=== PATIENT | male | born 1950 | race Caucasian/White ===

== ENCOUNTER 2024-04-02 10:34 | Outpatient (AMB) | payer MEDICARE, SELFPAY ==
--- NOTE | 2024-04-02 10:37 | A.OFFVIS_ITS ---
Vital Signs 04/02/24 10:49 Height 5 ft 11 in Weight 238 lb 8.642 oz BMI 33.3 BP 134/80 Blood Pressure Location Lt brachial Position Sitting Respiration 18 Pulse 53 Pulse Source Pulse Oximeter Pulse Oximetry (%) 98 Oxygen Delivery Method Room Air Intake Visit Reasons: RA/lm Intake Note: Patients present for RA. Needs prescription for Enbrel. Allergies meperidine [From Demerol] Adverse Reaction (Unknown, Verified 03/18/24 13:10) Hypertension, Seizure, Low Heart Rate Medication List - Last Reconciled 04/02/24 by Yan Branch MD etanercept (Enbrel) 50 mg subcut QWEEK ezetimibe 10 mg PO DAILY hydrochlorothiazide 25 mg PO DAILY lisinopril 40 mg PO DAILY HPI Comments Details: This is a 74-year-old male with seronegative RA who presents as a new patient. Patient was diagnosed with PMR some time 1006 and shortly after it was really able to seronegative RA. He was on prednisone for some time. He also stated that he was on methotrexate for some time and it was ineffective. He was switched to Enbrel in 2007 and it has been quite effective. He has remained on Enbrel regularly this 2007. Patient was getting Enbrel through [employer]. There was an issue with his insurance from 09/06/2023 to 01/06/2024 that time he could not get the Enbrel but he had Enbrel from previous prescriptions and he was using it every other week and he felt much more stiffness and pain. He is now on Enbrel regularly weekly. Today he feels quite well overall. Only intermittent joint pain and stiffness. He would take naproxen about once a week as needed for joint pain or stiffness. He is unaware of any family history of an autoimmune rheumatic disease. Denies any recent infections. [facility] Medical History Obesity ASIYA (obstructive sleep apnea) Hypertension GERD (gastroesophageal reflux disease) Surgical History Hx of nasal septoplasty Hx of adenoidectomy Hx of tonsillectomy History of carpal tunnel surgery Family History Father Heart failure Mother Alzheimer dementia Social History Household Members: Spouse Housing: House Alcohol intake: current Patient Tobacco Use Status: Former Tobacco user Review of Systems Eyes Reports blurry vision Musc Reports arthralgias, Reports joint swelling and Reports stiffness Neuro Reports memory loss Psych Reports anxiety, Reports depression and Reports memory loss Physical Exam Vital Signs: Last Vital Signs Pulse 53 04/02/24 10:49 Resp 18 04/02/24 10:49 BP 134/80 04/02/24 10:49 Pulse Ox 98 04/02/24 10:49 Oxygen Delivery Method Room Air 04/02/24 10:49 BMI result Body Mass Index 33.3 Const General: cooperative, healthy appearing and comfortable Nutritional Appearance: obese Orientation/consciousness: patient oriented x3 Limitations: no limitations HEENT Head: Yes normocephalic and Yes atraumatic Resp Effort & Inspection: normal respiratory effort and able to speak in complete sentences Auscultation: clear to auscultation bilaterally Cardio Rate: regular rate Rhythm: regular rhythm Skin General skin exam: no rashes or lesions noted Neuro General: patient oriented x3 Extrem Other: Osteoarthritic changes of both hands with no active synovitis Normal nailfold capillaroscopy Normal range of motion of hands, wrists, elbows and shoulders without pain Negative straight leg raise test bilaterally No knee pain with full flexion-extension No ankle swelling or tenderness bilaterally Assessment & Plan Assessment & Plan (1) Seronegative rheumatoid arthritis: Comment: dx 2007 MTX ineffective Enbrel 2007 effective Code(s): M06.00 - Rheumatoid arthritis without rheumatoid factor, unspecified site Category: Medical Plan: This is a 74-year-old male with seronegative RA who presents as a new patient for me. Patient used to follow-up with Dr. Daigle for years followed by Dr. Mallory. He has been quite stable on Enbrel 50 mg weekly for many years without side effects. On exam patient is doing quite well with no active synovitis. Will check labs. Continue with Enbrel 50 mg weekly. Patient states that he is up to renew his [employer] safety net application in August. Follow-up in 5 months. Paperwork to be completed at that time Plan I spent 46 minutes reviewing patient's chart, evaluating patient, ordering diagnostic workup, counseling patient and documenting in the chart Orders: Orders Comprehensive Met. Panel Today M06.00 - Rheumatoid arthritis without rheumatoid factor, unspecified site, M13.80 - Other specified arthritis, unspecified site C Reactive Protein Today M06.00 - Rheumatoid arthritis without rheumatoid factor, unspecified site, M13.80 - Other specified arthritis, unspecified site Hepatitis A,B,C Profile Today Z11.59 - Encounter for screening for other viral diseases Immunofixation Pnl, Serum Today M06.00 - Rheumatoid arthritis without rheumatoid factor, unspecified site, M13.80 - Other specified arthritis, unspecified site Protein Electrophoresis, Serum Today M06.00 - Rheumatoid arthritis without rheumatoid factor, unspecified site, M13.80 - Other specified arthritis, unspecified site Complete Blood Count Auto Diff Today M06.00 - Rheumatoid arthritis without rheumatoid factor, unspecified site, M13.80 - Other specified arthritis, unspecified site Erythrocyte Sedimentation Rate Today M06.00 - Rheumatoid arthritis without rheumatoid factor, unspecified site, M13.80 - Other specified arthritis, unspecified site T Spot TB Today Z11.7 - Encounter for testing for latent tuberculosis infection Coding Level of Care Code New Pt Level 4 (26947) Diagnoses Seronegative rheumatoid arthritis M06.00
[2024-04-02 10:49] VITALS: BP 134/80; PULSE 53; RESP 18; O2SAT 98; BMI 33.3
== END 2024-04-02 11:15 | disposition home or self-care (01) ==
PROVIDERS: PCP Nurse Practitioner Family; Visit Provider Student in an Organized Health Care Education/Training Program
DX: M06.00 Rheumatoid arthritis without rheumatoid factor, unspecified site (principal)
CPT/HCPCS: 99204

== ENCOUNTER 2024-04-02 10:34 | Outpatient (REF) | payer MEDICARE, SELFPAY ==
[2024-04-02 11:52] LABS: MANUAL DIFF FLAG NO
[2024-04-02 12:25] LABS: Basophils Absolute Auto 0.1 X10*3/uL (0.0-0.2); Eosinophils Absolute Auto 0.1 X10*3/uL (0.0-0.4); Eosinophils Percent Auto 2.3 % (0-4); Hematocrit 39.5 % (42.0-52.0); Hemoglobin 13.6 g/dl (14.0-18.0); Imm Gran Abs Auto 0.03 X10*3/uL (0.00-0.03); Imm Gran Pct Auto 0.6 % (0.0-0.4); Lymphocytes Absolute Auto 1.2 X10*3/uL (1.2-4.9); Lymphocytes Percent Auto 24.3 % (20-40); Mean Corpuscular HGB Conc 34.4 g/dl (31.0-36.0); Mean Corpuscular Hemoglobin 30.2 pg (27.0-33.0); Mean Corpuscular Volume 87.6 fL (80.0-98.0); Mean Platelet Volume 11.3 fL (9.4-12.4); Monocytes Absolute Auto 0.5 X10*3/uL (0.1-1.2); Monocytes Percent Auto 10.9 % (2-11); Neutrophils Percent Auto 60.9 % (45-73); Platelet Count 180 X10*3/uL (160-400); Red Blood Count 4.51 X10*6/uL (4.60-5.80); Red Cell Distribution Width 12.6 % (11.0-16.0); White Blood Count 4.9 X10*3/uL (4.8-10.8)
[2024-04-02 12:54] LABS: Alanine Aminotransferase 14 U/L (0-40); Albumin Level 4.2 g/dL (3.5-5.0); Alkaline Phosphatase 63 U/L (39-117); Anion Gap 12 (12-20); Aspartate Amino Transferase 22 U/L (5-37); Bilirubin Total 0.6 mg/dL (0.0-1.0); Blood Urea Nitrogen 22 mg/dL (9-16); C Reactive Protein < 0.04 mg/dL (< or = 0.50); Calcium 9.2 mg/dL (8.4-10.2); Carbon Dioxide 25 mmol/L (22-29); Chloride 106 mmol/L (96-108); Estimated Glomerular Filt Rate 55; Glucose Random 93 mg/dL (60-115); Potassium 3.8 mmol/L (3.3-5.1); Sodium 139 mmol/L (135-145); Total Protein 7.1 g/dL (6.5-8.0)
[2024-04-02 13:12] LABS: Erythrocyte Sedimentation Rate 7 MM/HR (0-15)
[2024-04-03 04:06] LABS: HBS Num1 0.26 mIU/mL (0-7.99); HBsAGNum1 0.37 S/CO (0.00-0.99); Hepatitis A Antibody IgM 0.15 Index (0-0.79); Hepatitis B Core Antibody Nonreactive (Nonreactive); Hepatitis B Surface Antigen Negative (Negative); ~HepC Num1 0.33 S/CO (0.00-0.79); ~Hepatitis A Antibody IgM Nonreactive (Nonreactive); ~Hepatitis B Surface Antibody NONREACTIVE (Nonreactive); ~Hepatitis C Antibody Nonreactive (Nonreactive)
[2024-04-04 21:43] LABS: TS Negative Control Passed; TS Panel A 0; TS Panel B 0; TS Positive Control Passed; TSpotTB Negative (Negative)
[2024-04-08 22:28] LABS: PES - Abn Protein Band 1 0.2 g/dL (NONE DETECTED); Prot Elec - Albumin 4.3 g/dL (3.8-4.8); Prot Elec - Alpha1 0.2 g/dL (0.2-0.3); Prot Elec - Alpha2 0.7 g/dL (0.5-0.9); Prot Elec - Beta 1 0.5 g/dL (0.4-0.6); Prot Elec - Beta 2 0.3 g/dL (0.2-0.5); Prot Elec - Gamma 1.1 g/dL (0.8-1.7)
[2024-04-09 14:43] LABS: IgA 164 mg/dL (70-320); IgG 1010 mg/dL (600-1540); IgM 404 mg/dL (50-300)
== END 2024-04-02 10:35 | disposition home or self-care (01) ==
LOC: HO.LAB 10:34
PROVIDERS: PCP Nurse Practitioner Family; Visit Provider Student in an Organized Health Care Education/Training Program
DX: M06.00 Rheumatoid arthritis without rheumatoid factor, unspecified site (principal); M13.80 Other specified arthritis, unspecified site; Z11.7 Encounter for testing for latent tuberculosis infection; Z11.59 Encounter for screening for other viral diseases; Z72.89 Other problems related to lifestyle; Z79.899 Other long term (current) drug therapy
CPT/HCPCS: 36415; 80053; 82784; 84165; 85025; 85652; 86140; 86334; 86481; 86704; 86706; 86709; 86803; 87340; 99202

== ENCOUNTER 2024-09-04 09:02 | Outpatient (AMB) | payer MEDICARE, SELFPAY ==
--- NOTE | 2024-09-04 09:26 | A.OFFVIS_ITS ---
Vital Signs 09/04/24 09:32 Height 5 ft 11 in Weight 243 lb 9.773 oz BMI 34.0 BP 120/80 Blood Pressure Location Rt brachial Position Sitting Respiration 18 Pulse 51 Pulse Source Pulse Oximeter Pulse Oximetry (%) 97 Oxygen Delivery Method Room Air Intake Visit Reasons: RA Intake Note: Patient presents for RA. Allergies meperidine [From Demerol] Adverse Reaction (Unknown, Verified 09/04/24 09:29) Hypertension, Seizure, Low Heart Rate Medication List - Last Reconciled 09/04/24 by Yan Branch MD etanercept (Enbrel) 50 mg subcut QWEEK ezetimibe 10 mg PO DAILY hydrochlorothiazide 25 mg PO DAILY lisinopril 40 mg PO DAILY HPI Comments Details: 74-year-old male with seronegative RA returns for follow-up. He remains on Enbrel. He tried to space out his Enbrel to 1 injection every 2 weeks so it would last longer. Immediately he felt worsening pain and stiffness of his ankles and shoulders. He went back to doing the injection every week. He was on the [employer]. He states that currently he will not qualify as they changed the threshold for low-income. He feels well otherwise Initial history: This is a 74-year-old male with seronegative RA who presents as a new patient. Patient was diagnosed with PMR some time 1006 and shortly after it was really able to seronegative RA. He was on prednisone for some time. He also stated that he was on methotrexate for some time and it was ineffective. He was switched to Enbrel in 2007 and it has been quite effective. He has remained on Enbrel regularly this 2007. Patient was getting Enbrel through [employer]. There was an issue with his insurance from 09/06/2023 to 01/06/2024 that time he could not get the Enbrel but he had Enbrel from previous prescriptions and he was using it every other week and he felt much more stiffness and pain. He is now on Enbrel regularly weekly. Today he feels quite well overall. Only intermittent joint pain and stiffness. He would take naproxen about once a week as needed for joint pain or stiffness. He is unaware of any family history of an autoimmune rheumatic disease. Denies any recent infections. [facility] Medical History Obesity ASIYA (obstructive sleep apnea) Hypertension GERD (gastroesophageal reflux disease) Surgical History Hx of nasal septoplasty Hx of adenoidectomy Hx of tonsillectomy History of carpal tunnel surgery Family History Father Heart failure Mother Alzheimer dementia Social History Household Members: Spouse Housing: House Alcohol intake: current Patient Tobacco Use Status: Former Tobacco user Review of Systems [facility] Reports arthralgias and Denies joint swelling Physical Exam Vital Signs: Last Vital Signs Pulse 51 09/04/24 09:32 Resp 18 09/04/24 09:32 BP 120/80 09/04/24 09:32 Pulse Ox 97 09/04/24 09:32 Oxygen Delivery Method Room Air 09/04/24 09:32 BMI result Body Mass Index 34.0 Const General: cooperative, healthy appearing and comfortable Nutritional Appearance: obese Orientation/consciousness: patient oriented x3 Limitations: no limitations HEENT Head: Yes normocephalic and Yes atraumatic Resp Effort & Inspection: normal respiratory effort and able to speak in complete sentences Cardio Rate: regular rate Rhythm: regular rhythm Skin General skin exam: no rashes or lesions noted Neuro General: patient oriented x3 Extrem Other: Osteoarthritic changes of both hands with no active synovitis Normal nailfold capillaroscopy Normal range of motion of hands, wrists, elbows and shoulders without pain Negative straight leg raise test bilaterally No knee pain with full flexion-extension No ankle swelling or tenderness bilaterally Assessment & Plan Assessment & Plan (1) Seronegative rheumatoid arthritis: Comment: dx 2007 MTX ineffective Enbrel 2007 effective Code(s): M06.00 - Rheumatoid arthritis without rheumatoid factor, unspecified site Category: Medical Plan: This is a 74-year-old male with seronegative RA who for follow-up. He has been on Enbrel regularly for since 2007. He was on the [employer] safety [employer]. Currently the threshold for household income has change and now he does not qualify. Since Enbrel has worked quite well for him for many years I think it would be a good idea to stay on a TNF inhibitor. Such as Enbrel or its bio similars or Humira or its bio similars. We will contact patient's insurance company and work on authorized doing a TNF inhibitor for him Labs before next visit in 3 months (2) MGUS (monoclonal gammopathy of unknown significance): Code(s): D47.2 - Monoclonal gammopathy Category: Medical Plan: Referred to heme/Onc (3) High risk medication use: Code(s): Z79.899 - Other rn long term care (current) drug therapy Category: Medical Plan: Side effects of Enbrel were discussed with the patient in detail including increased risk of infection, demyelinating disease, reactivation of latent TB, possible increased risk of solid and skin tumors. Patient fully aware. Advised patient to seek medical care [facility] if patient has an infection and advised patient to stop the medication until the infection is resolved. Plan I spent 26 minutes reviewing patient's chart, evaluating patient, ordering diagnostic workup, counseling patient and documenting in the chart Orders: Orders Comprehensive Met. Panel 3 Months M06.00 - Rheumatoid arthritis without rheumatoid factor, unspecified site C Reactive Protein 3 Months M06.00 - Rheumatoid arthritis without rheumatoid factor, unspecified site Complete Blood Count Auto Diff 3 Months M06.00 - Rheumatoid arthritis without rheumatoid factor, unspecified site Erythrocyte Sedimentation Rate 3 Months M06.00 - Rheumatoid arthritis without rheumatoid factor, unspecified site Referrals Hematology & Oncology Referral D47.2 - Monoclonal gammopathy Coding Level of Care Code Est Pt Level 4 (85445) Diagnoses Seronegative rheumatoid arthritis M06.00 MGUS (monoclonal gammopathy of unknown significance) D47.2 High risk medication use Z79.899
[2024-09-04 09:32] VITALS: BP 120/80; PULSE 51; RESP 18; O2SAT 97; BMI 34.0
== END 2024-09-04 10:08 | disposition home or self-care (01) ==
PROVIDERS: PCP Nurse Practitioner Family; Visit Provider Student in an Organized Health Care Education/Training Program
DX: M06.00 Rheumatoid arthritis without rheumatoid factor, unspecified site (principal); D47.2 Monoclonal gammopathy; Z79.899 Other long term (current) drug therapy
CPT/HCPCS: 99214

== ENCOUNTER → 2024-09-04 09:02 | Outpatient (BNVA) | payer MEDICARE, SELFPAY | PROVIDERS: PCP Nurse Practitioner Family; Visit Provider Student in an Organized Health Care Education/Training Program | DX: M06.00 Rheumatoid arthritis without rheumatoid factor, unspecified site (principal); D47.2 Monoclonal gammopathy; Z79.899 Other long term (current) drug therapy | CPT/HCPCS: 99212 ==

== ENCOUNTER 2024-12-18 11:05 | Outpatient (AMB) | payer MEDICARE, SELFPAY ==
--- NOTE | 2024-12-18 11:06 | A.OFFVIS_ITS ---
Vital Signs 12/18/24 11:18 Height 5 ft 11 in Weight 244 lb 4.355 oz BMI 34.1 BP 142/74 H Blood Pressure Location Lt brachial Position Sitting Pulse 59 Pulse Source Pulse Oximeter Pulse Oximetry (%) 96 Oxygen Delivery Method Room Air Intake Visit Reasons: RA Intake Note: Patient presents today for. Allergies meperidine [From Demerol] Adverse Reaction (Unknown, Verified 12/18/24 11:17) Hypertension, Seizure, Low Heart Rate Medication List - Last Reconciled 12/18/24 by Ingrid Lomax MD ezetimibe 10 mg PO DAILY golimumab (Simponi) 100 mg subcut Q4W hydrochlorothiazide 25 mg PO DAILY lisinopril 40 mg PO DAILY HPI Comments Details: Patient is a 74-year-old male with hypertension, hyperlipidemia, MGUS and seronegative rheumatoid arthritis here today for follow up Interval History: Patient last seen 09/04/[address] Branch. At that time he was following up for his seronegative rheumatoid arthritis. He was on Enbrel however did not meet the [employer] income requirements and so he was trying to space out his Enbrel injections to every 2 weeks so that they would last longer however this was associated worsening pain and stiffness. Because he no longer qualified for the [employer] his medication was changed to Humira. Unfortunately the Humira was not covered by insurance and so he was changed to Simponi Aria infusions of which she has received 2 doses so far. Patient reports he is overall stable on the Simponi Aria infusions with no return of his joint pain Rheumatologic History: Initial history: This is a 74-year-old male with seronegative RA who presents as a new patient. Patient was diagnosed with PMR some time 1006 and shortly after it was really able to seronegative RA. He was on prednisone for some time. He also stated that he was on methotrexate for some time and it was ineffective. He was switched to Enbrel in 2007 and it has been quite effective. He has remained on Enbrel regularly this 2007. Patient was getting Enbrel through [facility] [facility]. There was an issue with his insurance from 09/06/2023 to 01/06/2024 that time he could not get the Enbrel but he had Enbrel from previous prescriptions and he was using it every other week and he felt much more stiffness and pain. He is now on Enbrel regularly weekly. Today he feels quite well overall. Only intermittent joint pain and stiffness. He would take naproxen about once a week as needed for joint pain or stiffness. He is unaware of any family history of an autoimmune rheumatic disease. Denies any recent infections. Current Rheumatology Medication(s): Simponi Aria infusions 2mg/kg IV every 8 weeks [facility] Medical History Obesity ASIYA (obstructive sleep apnea) Hypertension GERD (gastroesophageal reflux disease) Surgical History Hx of nasal septoplasty Hx of adenoidectomy Hx of tonsillectomy History of carpal tunnel surgery Family History Father Heart failure Mother Alzheimer dementia Social History Household Members: Spouse Housing: House Alcohol intake: current Patient Tobacco Use Status: Former Tobacco user Review of Systems Const Details: Review of Systems Constitutional: Denies fever, chills, weight loss ENT: Denies vision changes, eye pain or eye redness, dental caries, dry mouth GI: Denies nausea, vomiting, diarrhea, abdominal pain, change in BM Pulm: Denies SOB, FIGUEROA, hemoptysis, wheezing Cards: Denies chest pain, palpitations Skin: Denies Raynaud's, rash, nail changes, photosensitivity, ROLL CLEANER: Denies headaches, weakness, paresthesias, recurrent falls MSK: as per HPI All other systems reviewed and are unremarkable except noted above Physical Exam Vital Signs: Last Vital Signs Pulse 59 12/18/24 11:18 BP 142/74 H 12/18/24 11:18 Pulse Ox 96 12/18/24 11:18 Oxygen Delivery Method Room Air 12/18/24 11:18 BMI result Body Mass Index 34.1 Vital signs reviewed Physical Examination CONSTITUITIONAL Patient alert and cooperative. Well appearing and in no apparent painful distress HEENT Conjunctiva and sclera clear. ?Pupils equal round and reactive to light. ?No lymphadenopathy. ? CHEST/RESPIRATORY SYSTEM Normal respiratory effort and able to speak in complete sentences. ?Clear to auscultation bilaterally. ?No crackles, rales, rhonchi, wheezes heard. CARDIAC SYSTEM Regular rate and rhythm. ?S1 and S2 heard no murmurs. ?Radial pulses intact bilaterally MSK Hands: ?Good hand gluer and slicer strength bilaterally. No deformities noted. ?No synovitis noted to the MCPs, PIPs or DIPs. ?No tenderness to palpation of these joints. Prominent [place] nodes Wrists: ?Full range of motion at the wrists without pain. ?No tenderness to palpation or synovitis noted to the wrists. Elbows: Full range of motion without pain. No tenderness, weakness, swelling, in creased warmth or erythema. Shoulders: Full range of motion without pain. No tenderness, weakness, swelling, increased warmth or erythema. Positive Montero Zurdo on the left shoulder with prominent musculature from an old injury. Hips: Full range of motion without pain. Hip bursa: No tenderness to palpation Knees: ?Full range of motion. ?No tenderness, swelling, increased warmth or eryt gilberto.?No effusion or crepitations Ankles: Full range of motion. ?No tenderness, swelling, increased warmth or erythema.? Feet: ?Negative squeeze test. ?No tenderness to palpation or swelling of the MTPs. Tender points:?No tenderness to palpation of the bilateral trapezius, supraspinatus, greater trochanters, anterior costochondral junctions, bilateral gluteal areas, bilateral suboccipital muscle insertions SKIN Skin intact without rashes. Results Reviewed Results Reviewed: Laboratory Tests 11/13/24 10:08 WBC 4.5 L RBC 4.38 L Hgb 13.2 L Hct 38.8 L Plt Count 170 ESR 10 Sodium 143 Potassium 3.9 Chloride 108 Carbon Dioxide 25 BUN 33 H Creatinine 1.38 Calcium 9.0 Total Bilirubin 0.4 AST 30 ALT 22 Alkaline Phosphatase 71 C-Reactive Protein < 0.10 Laboratory Tests 04/02/24 11:50 SURESH Interpretation Faint IgG kappa monoclonal band present. Infectious serologies 04/02/24 11:50 Hepatitis A IgM Ab Nonreactive Hep Bs Antigen Negative Hep Bs Antibody NONREACTIVE Hep B Core Total Ab Nonreactive Hepatitis C Ab (EIA) Nonreactive TB Test (T-Spot) Com Negative Assessment & Plan Assessment & Plan (1) Seronegative rheumatoid arthritis: Comment: dx 2007 MTX ineffective Enbrel 2008 effective Code(s): M06.00 - Rheumatoid arthritis without rheumatoid factor, unspecified site Category: Medical Plan: #Seronegative RA Patient is a 74-year-old male with seronegative rheumatoid arthritis here today for follow up. Disease is currently in remission on Simponi Aria infusions. Plan - Continue simponi aria infusions 2mg/kg every 8 weeks - RTC 4 months - Labs before visit: CBC, CMP, ESR, CRP, hepatitis panel, T spot (2) MGUS (monoclonal gammopathy of unknown significance): Code(s): D47.2 - Monoclonal gammopathy Category: Medical Plan: #MGUS Positive SPEP. Referred to Hematology (3) Tendinopathy of left rotator cuff: Code(s): M67.912 - Unspecified disorder of synovium and tendon, left shoulder Plan: #Rotator Cuff tendinopathy Patient with rotator cuff tendinopathy worse on the left. Of note has a known injury to the left shoulder. Stretches given in a printout (4) Encounter for monitoring golimumab therapy: Code(s): Z51.81 - Encounter for therapeutic drug level monitoring; Z79.620 - intermission coordinator (current) use of immunosuppressive biologic Plan: #Long-term Use of TNF Inhibitors: Golimumab Discussed with the patient the benefits and risks of TNF inhibitors for the management of the rheumatic condition Benefits include reduce pain, maintenance of remission and reduction of flares as well as ?progression of the disease Risks include injection sites/infusion reactions, serious infections (such as bacterial infections, opportunistic infections), malignancy, delaminating syndromes, autoimmune phenomena, CHF exacerbations, palmar plantar psoriasis and cytopenias Recommended rotating injection sites, and holding medication during and for up to 1 week after resolution of a febrile illness or open skin wound Plan I spent 30 minutes reviewing the record and labs, taking a history, examining the patient, discussing the treatment plan, ordering diagnostic work up and documenting in the medical record Orders: Orders Complete Blood Count Auto Diff 4 Months M06.00 - Rheumatoid arthritis without rheumatoid factor, unspecified site Comprehensive Met. Panel 4 Months M06.00 - Rheumatoid arthritis without rheumatoid factor, unspecified site C Reactive Protein 4 Months M06.00 - Rheumatoid arthritis without rheumatoid factor, unspecified site Erythrocyte Sedimentation Rate 4 Months M06.00 - Rheumatoid arthritis without rheumatoid factor, unspecified site Hepatitis A,B,C Profile 4 Months M06.00 - Rheumatoid arthritis without rheumatoid factor, unspecified site T Spot TB 4 Months M06.00 - Rheumatoid arthritis without rheumatoid factor, unspecified site Referrals Hematology & Oncology Referral D47.2 - Monoclonal gammopathy Infusion Center Notification M06.00 - Rheumatoid arthritis without rheumatoid factor, unspecified site Medications: Discontinued adalimumab (Humira(CF) Pen) Discontinued Reason: Doctor's Order inject one - 40 mg/0.4 mL pen every 2 weeks subcut 2 ea 2RF Coding Level of Care Code Est Pt Level 4 (01417) Complex EM visit Add On G2211 Diagnoses Seronegative rheumatoid arthritis M06.00 MGUS (monoclonal gammopathy of unknown significance) D47.2 Tendinopathy of left rotator cuff M67.912 Encounter for monitoring golimumab therapy Z51.81; Z79.620
[2024-12-18 11:18] VITALS: BP 142/74; PULSE 59; O2SAT 96; BMI 34.1
--- OUTSIDE RECORDS SUMMARY | 2024-12-18 13:27 | XMS_ITS | Clinical Summary ---
Author Organization [facility] Address [facility] [place] [address] Care Team Providers Care Front End Software Engineer Name Role Phone Christy Arthur MD Primary Care Provider [phone] Allergies Active Allergy Reactions Criticality Noted Date Comments Meperidine 08/12/2019 Medications Medication Sig Dispensed Refills Start Date End Date Status amLODIPine (Norvasc) 5 mg Tablet TAKE 1 TABLET(5 MG) BY MOUTH DAILY 09/04/2020 Active etanercept (ENBREL) 25 mg (1 mL) Recon Soln Acti ve hydroCHLOROthiazide (Hydrodiuril) 25 mg Tablet Take 25 mg by mouth Daily. Active lisinopriL (Prinivil;Zestril) 40 mg Tablet Take 40 mg by mouth Daily. Active Active Problems Problem Noted Date Diagnosed Date Bradycardia 08/12/2019 Hypertension 08/12/2019 Syncope and collapse 08/12/2019 Social History Tobacco Use Types Packs/Day Years Used Date Smoking Tobacco: Never Smokeless Tobacco: Never Sex and Gender Information Value Date Recorded Sex Assigned at Not on file Gender Identity Not on file Sexual Orientation Not on file Last Filed Vital Signs Vital Sign Reading Time Taken Comments Blood Pressure 184/81 12/30/2020 7:55 AM EDT Pulse - - Temperature 36.3 ??C (97.3 ??F) 12/30/2020 7:55 AM ED T Respiratory Rate - - Oxygen Saturation - - Inhaled Oxygen Concentration - - Weight - - Height - - Body Mass Index - - Plan of Treatment Health Maintenance Due Date Last Done Comments CT Colonography 1949 Colonoscopy 1949 Colorectal Cancer Screening 1949 FIT DNA 1949 FIT 1949 Sigmoidoscopy (10 year) with FIT yearly 1949 Sigmoidoscopy 1949 Hepatitis C Screening 1967 Lipid Screening 1967 Tetanus/Diphtheria/Pertussis Vaccines (1 - Tdap) 02/01 Pneumoccocal Vaccine: 50+ (1 of 1 - PCV) 1999 Zoster vaccine (1 of 2) 1999 Advance Directive 02/02/2004 RSV Vaccine (1 - 1-dose 75+ series) 02/02/2024 Covid-19 Vaccine (1 - season) 2024 Influenza (Flu) vaccine (1 o f 1 - Influenza standard series) 05/19/2024 Care Teams Front End Software Engineer Relationship Specialty Start Date End Date Christy Arthur MD PCP - General Internal Medicine 12/17/20
--- OUTSIDE RECORDS SUMMARY | 2024-12-18 13:27 | XMS_ITS | Clinical Summary ---
Author Organization [facility], Address [address] [place] [address] Phone Care Team Providers Care Scale Manager Name Role Phone Edward Rucker Primary Care Provider [phone] Social History Tobacco Use Types Packs/Day Years Used Date Smoking Tobacco: Never Assessed Sex and Gender Information Value Date Recorded Sex Assigned at Not on file Legal Sex Male 4:02 PM EST Gender Identity Not on file Sexual Orientation Not on file Plan of Treatment Health Maintenance Due Date Last Done Comments Colorectal Cancer Screening: Annual FOBT 1998 Colorectal Cancer Screening: Colonoscopy 1998 Colorectal Cancer Screening: Sigmoidoscopy 1998 Pneumococcal Vaccine: 65+ Ye ars (1 of - PCV) 2014 Influenza Vaccine (Season Ended) 2025 Hepatitis B Vaccine Aged Out No longe r eligible based on patient's age to complete this topic Insurance MEDICARE [facility] Care Teams Scale Manager Relationship Specialty Start Date End Date Edward Rucker PA [address] [place] [id number] PCP - General Physician Machine I Trimmer 08/18/21
--- OUTSIDE RECORDS SUMMARY | 2024-12-18 13:27 | XMS_ITS | Data Portability ---
Author Organization [facility], [facility] Address [address] [place] [address] Care Team Providers Care Cashier General Name Role Phone ZACH DAIGLE [address] Repairer SHERRIE SÁNCHEZ Primary Care Provider Assessment No assessment recorded. Plan of Treatment Reminders Order Date Submit Date Provider Last Modified By Organization Details Last Modified Time Details Appointments None recorded. Lab CBC 2021 [facility], [address] [place] [address], [id number], 10:35:19 C-reactive protein, quantitativ e, serum or plasma 2021 [facility], [address] [place] [address], 43568, 14:52:25 erythrocyte sedimentati on rate by westergren method 2021 [facility], [address] [place] [address], 21573, 12:03:33 CMP, serum or plasma 2021 [facility], [address] [place] [address], 11162, 14:36:10 CBC 2021 [facility], [address] [place] [address], 74521, 07/06/202 2 11:01:45 C-reactive protein, quantitativ e, serum or plasma 2021 022 [facility], [address] [place] [address], 42061, 16:05:09 erythrocyte sedimentati on rate by westergren method 2021 022 [facility], [address] [place] [address], 36055, 12:14:22 CMP, serum or plasma 2021 022 [facility], [address] [place] [address], 86893, 15:39:16 tb (M tuberculosi s), ifn-gamma elver, blood 2021 022 [facility], [address] [place] [address], 33197, 15:49:29 CBC 2021 022 [facility], [address] [place] [address], 17798, 10:40:38 C-reactive protein, quantitativ e, serum or plasma 2021 022 [facility], [address] [place] [address], 86449, 2 16:35:20 erythrocyte sedimentati on rate by westergren method 2021 022 [facility], [address] [place] [address], 22400, 16:11:00 CMP, serum or plasma 2021 022 [facility], [address] [place] [address], 68693, 14:30:58 CBC [address] [facility], [address] [place] [address], 76489, 12:07:36 C-reactive protein, quantitativ e, serum or plasma [address] [facility], [address] [place] [address], 18250, 12:07:36 erythrocyte sedimentati on rate by westergren method [address] [facility], [address] [place] [address], 35345, 12:07:36 CMP, serum or plasma [address] [facility], [address] [place] [address], 52274, 12:07:36 Referral None recorded. Procedures None recorded. Surgeries None recorded. Imaging bone density 2021 [facility] ([facility]), [address], [place], [address], 21:26:07 Medication Orders prednisone 5 mg tablet 2021 022 [email or web address] 4 [id number], [address], [place], [id number], 09:35:26 prednisone 10 mg tablet 2021 022 [email or web address] 4 [id number], [address], [place], [id number], 14:38:19 prednisone 10 mg tablet 2021 022 [facility] #[id number], [address], [place], [id number], 11:11:30 Patient TargetsNo targets recorded. Patient InstructionsNo instructions recorded. Reason for Referral None Reported. Results Created Date Observation Date Name Description Value Unit Range Abnormal Flag Note LastModifiedBy Organization Detail LastModifiedTime 10/12/19 22 10/12/2021 CBC WBC 8.73 K/? ? ?L 4.23-9 .07 Not Available [address], 47[address], 10/12/2021 12:10:32 10/12/19 22 10/12/2021 CBC RBC 4.41 M/? ? ?L 4.63-6 .08 low Not Available [address], 03929, 10/12/2021 12:10:32 10/12/19 22 10/12/2021 CBC HGB 12.2 g/dL 13.7-1 7.5 low Not Available [address], 14711, 10/12/2021 12:10:32 10/12/19 22 10/12/2021 CBC HCT 38.6 % 40.1-5 1.0 low Not Available [address], 53872, 10/12/2021 12:10:32 10/12/19 22 10/12/2021 CBC MCV 87.5 fL 79.0-9 2.2 Not Available [address], 45319, 10/12/2021 12:10:32 10/12/19 22 10/12/2021 CBC MCH 27.7 pg 25.7-3 2.2 Not Available [address], 33601, 10/12/2021 12:10:32 10/12/19 22 10/12/2021 CBC MCHC 31.6 g/dL 32.3-3 6.5 low Not Available [address], 04584, 10/12/2021 12:10:32 10/12/19 22 10/12/2021 CBC plt 249 K/? ? ?L 163-33 7 Not Available [address], 42993, 10/12/2021 12:10:32 10/12/19 22 10/12/2021 CBC MPV 10.9 fL 9.4-12 .4 Not Available [address], 04401, 10/12/2021 12:10:32 10/12/19 22 10/12/2021 CBC neut% 69.7 % 34.0-6 7.9 high Not Available [address], 65725, 10/12/2021 12:10:32 10/12/19 22 10/12/2021 CBC neut# 6.08 1.78-5 .38 high Not Available [address], 13598, 10/12/2021 12:10:32 10/12/19 22 10/12/2021 CBC lymph % 13.1 % 21.8-5 3.1 low Not Available [address], 04781, 10/12/2021 12:10:32 10/12/19 22 10/12/2021 CBC lymph # 1.14 K/? ? ?L 1.32-3 .57 low Not Available [address], 58093, 10/12/2021 12:10:32 10/12/19 22 10/12/2021 CBC mono% 14.4 % 5.3-12 .2 high Not Available [address], 16619, 10/12/2021 12:10:32 10/12/19 22 10/12/2021 CBC mono# 1.26 0.30-0 .82 high Not Available [address], 46291, 10/12/2021 12:10:32 10/12/19 22 10/12/2021 CBC eo% 1.8 % 0.8-7. 0 Not Available [address], 60605, 10/12/2021 12:10:32 10/12/19 22 10/12/2021 CBC eo# 0.16 0.04-0 .54 Not Available [address], 22440, 10/12/2021 12:10:32 10/12/19 22 10/12/2021 CBC baso% 0.7 % 0.2-1. 2 Not Available [address], 68475, 10/12/2021 12:10:32 10/12/19 22 10/12/2021 CBC baso# 0.06 0.00-0 .08 Not Available [address], 32090, 10/12/2021 12:10:32 10/12/19 22 10/12/2021 CBC RDW-CV 12.7 % 11.6-1 4.4 Not Available [address], 61884, 10/12/2021 12:10:32 10/12/19 22 10/12/2021 CBC Ig% 0.300 % 0.000- 1.500 Ig % >0.5 Indic ates possi ble Left Shift Not Available [address], 24611, 10/12/2021 12:10:32 10/12/19 22 10/12/2021 CBC Ig# 0.030 0.000- 0.093 Not Available [address], 00231, 10/12/2021 12:10:32 10/12/19 22 10/12/2021 CBC NRBC% 0.0 % 0.0-0. 2 Not Available [address], 65415, 10/12/2021 12:10:32 10/12/19 22 10/12/2021 CBC NRBC# 0.000 0.000- 0.012 Not Available [address], 69251, 10/12/2021 12:10:32 10/12/19 22 10/12/2021 ESR sed rate 29.0 0.0-20 .0 high Not Available [address], 27146, 10/12/2021 15:00:17 10/12/19 22 10/12/2021 COMP. METAB OLIC PANEL glucose 115 mg/dL 70-100 high Not Available [address], 21032, 10/12/2021 15:46:40 10/12/19 22 10/12/2021 COMP. METAB OLIC PANEL BUN 33 mg/dL 7-18 high Not Available [address], 69435, 10/12/2021 15:46:40 10/12/19 22 10/12/2021 COMP. METAB OLIC PANEL creatinine 1.4 mg/dL 0.8-1. 3 high Not Available [address], 56737, 10/12/2021 15:46:40 10/12/19 22 10/12/2021 COMP. METAB OLIC PANEL B/C 23.6 ratio Not Available [address], 82542, 10/12/2021 15:46:40 10/12/19 22 10/12/2021 COMP. METAB OLIC PANEL GFR 53.4 mL/mi n abnormal >=60m L/min - Yelena l or midly reduc ed <60mL /min- Decre ased kidne y funct ion <15mL /min - Kidne y failu re [facility] calcu lates estim ated Glome rular Filtr ation Rate (eGFR ) using the Chron ic Kidne y Disea se Epide miolo gy Colla borat ion (CKD- EPI) Equat ion (Steven barba et. al 2020) as recom jduy d by the Natio nal Kidne y Found ation . eGFR is based on age, serum creat inine , and sex. CKD-E PI does not calcu late eGFR by race, does not apply to child aye (age <18 years ), and shoul d not be used in pregn chayito. Not Available [address], 69360, 10/12/2021 15:46:40 10/12/19 22 10/12/2021 COMP. METAB OLIC PANEL sodium 141 mmol/ L 136-14 5 Not Available [address], 85937, 10/12/2021 15:46:40 10/12/19 22 10/12/2021 COMP. METAB OLIC PANEL potassium 4.5 mmol/ L 3.5-5. 1 Not Available [address], 60921, 10/12/2021 15:46:40 10/12/19 22 10/12/2021 COMP. METAB OLIC PANEL chloride 102 mmol/ L 96-107 Not Available [address], 70418, 10/12/2021 15:46:40 10/12/19 22 10/12/2021 COMP. METAB OLIC PANEL anion gap 9.1 5.0-15 .0 Not Available [address], 64784, 10/12/2021 15:46:40 10/12/19 22 10/12/2021 COMP. METAB OLIC PANEL CO2 30 mmol/ L 21-32 Not Available [address], 23794, 10/12/2021 15:46:40 10/12/19 22 10/12/2021 COMP. METAB OLIC PANEL calcium 9.2 mg/dL 8.5-10 .3 Not Available [address], 06560, 10/12/2021 15:46:40 10/12/19 22 10/12/2021 COMP. METAB OLIC PANEL total protein 7.4 g/dL 6.4-8. 2 Not Available [address], 78050, 10/12/2021 15:46:40 10/12/19 22 10/12/2021 COMP. METAB OLIC PANEL albumin 3.9 g/dL 3.4-5. 0 Not Available [address], 91776, 10/12/2021 15:46:40 10/12/19 22 10/12/2021 COMP. METAB OLIC PANEL globulin 3.5 g/dL Not Available [address], 52991, 10/12/2021 15:46:40 10/12/19 22 10/12/2021 COMP. METAB OLIC PANEL A/G 1.1 ratio 0.8-2. 0 Not Available [address], 81352, 10/12/2021 15:46:40 10/12/19 22 10/12/2021 COMP. METAB OLIC PANEL total bilirubin 0.50 mg/dL 0.00-1 .00 Not Available [address], 58964, 10/12/2021 15:46:40 10/12/19 22 10/12/2021 COMP. METAB OLIC PANEL AST 20 U/L 0-37 Not Available [address], 06196, 10/12/2021 15:46:40 10/12/19 22 10/12/2021 COMP. METAB OLIC PANEL ALT 23 U/L 6-63 Not Available [address], 47235, 10/12/2021 15:46:40 10/12/19 22 10/12/2021 COMP. METAB OLIC PANEL alk. phos. 89 U/L 50-136 Not Available [address], 92503, 10/12/2021 15:46:40 10/12/19 22 10/12/2021 C-MALIK CTIVE PROTE IN-QU ANTIT ATIVE C-reactive protein -quant 20.5 mg/L 0.0-9. 0 high Not Available [address], 51035, 10/12/2021 15:46:41 12/07/19 22 12/06/2021 CBC WBC 7.11 K/? ? ?L 4.23-9 .07 Not Available [address], 34640, 12/06/2021 10:40:38 12/07/19 22 12/06/2021 CBC RBC 4.40 M/? ? ?L 4.63-6 .08 low Not Available [address], 85249, 12/06/2021 10:40:38 12/07/19 22 12/06/2021 CBC HGB 12.4 g/dL 13.7-1 7.5 low Not Available [address], 58310, 12/06/2021 10:40:38 12/07/19 22 12/06/2021 CBC HCT 39.0 % 40.1-5 1.0 low Not Available [address], 55517, 12/06/2021 10:40:38 12/07/19 22 12/06/2021 CBC MCV 88.6 fL 79.0-9 2.2 Not Available [address], 94881, 12/06/2021 10:40:38 12/07/19 22 12/06/2021 CBC MCH 28.2 pg 25.7-3 2.2 Not Available [address], 82001, 12/06/2021 10:40:38 12/07/19 22 12/06/2021 CBC MCHC 31.8 g/dL 32.3-3 6.5 low Not Available [address], 23349, 12/06/2021 10:40:38 12/07/19 22 12/06/2021 CBC plt 217 K/? ? ?L 163-33 7 Not Available [address], 30097, 12/06/2021 10:40:38 12/07/19 22 12/06/2021 CBC MPV 11.0 fL 9.4-12 .4 Not Available [address], 08809, 12/06/2021 10:40:38 12/07/19 22 12/06/2021 CBC neut% 63.1 % 34.0-6 7.9 Not Available [address], 02277, 12/06/2021 10:40:38 12/07/19 22 12/06/2021 CBC neut# 4.48 1.78-5 .38 Not Available [address], 21172, 12/06/2021 10:40:38 12/07/19 22 12/06/2021 CBC lymph % 20.5 % 21.8-5 3.1 low Not Available [address], 97356, 12/06/2021 10:40:38 12/07/19 22 12/06/2021 CBC lymph # 1.46 K/? ? ?L 1.32-3 .57 Not Available [address], 33979, 12/06/2021 10:40:38 12/07/19 22 12/06/2021 CBC mono% 12.8 % 5.3-12 .2 high Not Available [address], 41218, 12/06/2021 10:40:38 12/07/19 22 12/06/2021 CBC mono# 0.91 0.30-0 .82 high Not Available [address], 96152, 12/06/2021 10:40:38 12/07/19 22 12/06/2021 CBC eo% 2.5 % 0.8-7. 0 Not Available [address], 47152, 12/06/2021 10:40:38 12/07/19 22 12/06/2021 CBC eo# 0.18 0.04-0 .54 Not Available [address], 20194, 12/06/2021 10:40:38 12/07/19 22 12/06/2021 CBC baso% 0.7 % 0.2-1. 2 Not Available [address], 09923, 12/06/2021 10:40:38 12/07/19 22 12/06/2021 CBC baso# 0.05 0.00-0 .08 Not Available [address], 97662, 12/06/2021 10:40:38 12/07/19 22 12/06/2021 CBC RDW-CV 13.2 % 11.6-1 4.4 Not Available [address], 01329, 12/06/2021 10:40:38 12/07/19 22 12/06/2021 CBC Ig% 0.400 % 0.000- 1.500 Ig % >0.5 Indic ates possi ble Left Shift Not Available [address], 90572, 12/06/2021 10:40:38 12/07/19 22 12/06/2021 CBC Ig# 0.030 0.000- 0.093 Not Available [address], 95382, 12/06/2021 10:40:38 12/07/19 22 12/06/2021 CBC NRBC% 0.0 % 0.0-0. 2 Not Available [address], 27099, 12/06/2021 10:40:38 12/07/19 22 12/06/2021 CBC NRBC# 0.000 0.000- 0.012 Not Available [address], 29708, 12/06/2021 10:40:38 12/07/19 22 12/06/2021 ESR sed rate 24.0 0.0-20 .0 high Not Available [address], 76419, 12/06/2021 16:11:00 12/07/19 22 12/06/2021 C-MALIK CTIVE PROTE IN-QU ANTIT ATIVE C-reactive protein -quant <2.0 mg/L 0.0-9. 0 < Test resul t verif ied by repea t Not Available [address], 05366, 12/06/2021 16:35:20 12/07/19 22 12/07/2021 COMP. METAB OLIC PANEL glucose 104 mg/dL 70-100 high Not Available [address], 33707, 12/07/2021 14:30:58 12/07/19 22 12/07/2021 COMP. METAB OLIC PANEL BUN 34 mg/dL 7-18 high Not Available [address], 88794, 12/07/2021 14:30:58 12/07/19 22 12/07/2021 COMP. METAB OLIC PANEL creatinine 1.2 mg/dL 0.8-1. 3 Not Available [address], 04377, 12/07/2021 14:30:58 12/07/19 22 12/07/2021 COMP. METAB OLIC PANEL B/C 28.3 ratio Not Available [address], 74294, 12/07/2021 14:30:58 12/07/19 22 12/07/2021 COMP. METAB OLIC PANEL GFR >=60ML /MIN mL/mi n normal >=60m L/min - Yelena l or midly reduc ed <60mL /min- Decre ased kidne y funct ion <15mL /min - Kidne y failu re [facility] calcu lates estim ated Glome rular Filtr ation Rate (eGFR ) using the Chron ic Kidne y Disea se Epide miolo gy Colla borat ion (CKD- EPI) Equat ion (Steven r et. al 2020) as recom judy d by the Natio nal Kidne y Found ation . eGFR is based on age, serum creat inine , and sex. CKD-E PI does not calcu late eGFR by race, does not apply to child aye (age <18 years ), and shoul d not be used in pregn chayito. Not Available [address], 26523, 12/07/2021 14:30:58 12/07/19 22 12/07/2021 COMP. METAB OLIC PANEL sodium 142 mmol/ L 136-14 5 Not Available [address], 92486, 12/07/2021 14:30:58 12/07/19 22 12/07/2021 COMP. METAB OLIC PANEL potassium 4.1 mmol/ L 3.5-5. 1 Not Available [address], 37132, 12/07/2021 14:30:58 12/07/19 22 12/07/2021 COMP. METAB OLIC PANEL chloride 106 mmol/ L 96-107 Not Available [address], 33669, 12/07/2021 14:30:58 12/07/19 22 12/07/2021 COMP. METAB OLIC PANEL anion gap 8.6 5.0-15 .0 Not Available [address], 44004, 12/07/2021 14:30:58 12/07/19 22 12/07/2021 COMP. METAB OLIC PANEL CO2 27 mmol/ L 21-32 Not Available [address], 64591, 12/07/2021 14:30:58 12/07/19 22 12/07/2021 COMP. METAB OLIC PANEL calcium 8.7 mg/dL 8.5-10 .3 Not Available [address], 83591, 12/07/2021 14:30:58 12/07/19 22 12/07/2021 COMP. METAB OLIC PANEL total protein 6.9 g/dL 6.4-8. 2 Not Available [address], 22539, 12/07/2021 14:30:58 12/07/19 22 12/07/2021 COMP. METAB OLIC PANEL albumin 3.6 g/dL 3.4-5. 0 Not Available [address], 93212, 12/07/2021 14:30:58 12/07/19 22 12/07/2021 COMP. METAB OLIC PANEL globulin 3.3 g/dL Not Available [address], 55841, 12/07/2021 14:30:58 12/07/19 22 12/07/2021 COMP. METAB OLIC PANEL A/G 1.1 ratio 0.8-2. 0 Not Available [address], 21350, 12/07/2021 14:30:58 12/07/19 22 12/07/2021 COMP. METAB OLIC PANEL total bilirubin 0.50 mg/dL 0.00-1 .00 Not Available [address], 94401, 12/07/2021 14:30:58 12/07/19 22 12/07/2021 COMP. METAB OLIC PANEL AST 20 U/L 0-37 Not Available [address], 43626, 12/07/2021 14:30:58 12/07/19 22 12/07/2021 COMP. METAB OLIC PANEL ALT 19 U/L 6-63 Not Available [address], 73716, 12/07/2021 14:30:58 12/07/19 22 12/07/2021 COMP. METAB OLIC PANEL alk. phos. 74 U/L 50-136 Not Available [address], 55642, 12/07/2021 14:30:58 03/23/20 22 03/23/2022 CBC WBC 4.98 K/? ? ?L 4.23-9 .07 Not Available [address], 60068, 03/23/2022 11:01:45 03/23/20 22 03/23/2022 CBC RBC 4.62 M/? ? ?L 4.63-6 .08 low Not Available [address], 26132, 03/23/2022 11:01:45 03/23/20 22 03/23/2022 CBC HGB 13.5 g/dL 13.7-1 7.5 low Not Available [address], 11500, 03/23/2022 11:01:45 03/23/20 22 03/23/2022 CBC HCT 41.8 % 40.1-5 1.0 Not Available [address], 63474, 03/23/2022 11:01:45 03/23/20 22 03/23/2022 CBC MCV 90.5 fL 79.0-9 2.2 Not Available [address], 44665, 03/23/2022 11:01:45 03/23/20 22 03/23/2022 CBC MCH 29.2 pg 25.7-3 2.2 Not Available [address], 70913, 03/23/2022 11:01:45 03/23/20 22 03/23/2022 CBC MCHC 32.3 g/dL 32.3-3 6.5 Not Available [address], 09728, 03/23/2022 11:01:45 03/23/20 22 03/23/2022 CBC plt 183 K/? ? ?L 163-33 7 Not Available [address], 39334, 03/23/2022 11:01:45 03/23/20 22 03/23/2022 CBC MPV 11.9 fL 9.4-12 .4 Not Available [address], 70297, 03/23/2022 11:01:45 03/23/20 22 03/23/2022 CBC neut% 54.1 % 34.0-6 7.9 Not Available [address], 45486, 03/23/2022 11:01:45 03/23/20 22 03/23/2022 CBC neut# 2.69 1.78-5 .38 Not Available [address], 21266, 03/23/2022 11:01:45 03/23/20 22 03/23/2022 CBC lymph % 29.5 % 21.8-5 3.1 Not Available [address], 43424, 03/23/2022 11:01:45 03/23/20 22 03/23/2022 CBC lymph # 1.47 K/? ? ?L 1.32-3 .57 Not Available [address], 97419, 03/23/2022 11:01:45 03/23/20 22 03/23/2022 CBC mono% 12.4 % 5.3-12 .2 high Not Available [address], 98829, 03/23/2022 11:01:45 03/23/20 22 03/23/2022 CBC mono# 0.62 0.30-0 .82 Not Available [address], 10000, 03/23/2022 11:01:45 03/23/20 22 03/23/2022 CBC eo% 3.0 % 0.8-7. 0 Not Available [address], 78557, 03/23/2022 11:01:45 03/23/20 22 03/23/2022 CBC eo# 0.15 0.04-0 .54 Not Available [address], 82362, 03/23/2022 11:01:45 03/23/20 22 03/23/2022 CBC baso% 0.6 % 0.2-1. 2 Not Available [address], 96216, 03/23/2022 11:01:45 03/23/20 22 03/23/2022 CBC baso# 0.03 0.00-0 .08 Not Available [address], 79323, 03/23/2022 11:01:45 03/23/20 22 03/23/2022 CBC RDW-CV 12.8 % 11.6-1 4.4 Not Available [address], 07757, 03/23/2022 11:01:45 03/23/20 22 03/23/2022 CBC Ig% 0.400 % 0.000- 1.500 Ig % >0.5 Indic ates possi ble Left Shift Not Available [address], 88910, 03/23/2022 11:01:45 03/23/20 22 03/23/2022 CBC Ig# 0.020 0.000- 0.093 Not Available [address], 77914, 03/23/2022 11:01:45 03/23/20 22 03/23/2022 CBC NRBC% 0.0 % 0.0-0. 2 Not Available [address], 64848, 03/23/2022 11:01:45 03/23/20 22 03/23/2022 CBC NRBC# 0.000 0.000- 0.012 Not Available [address], 19060, 03/23/2022 11:01:45 03/23/20 22 03/23/2022 ESR sed rate 7.0 0.0-20 .0 Not Available [address], 72783, 03/23/2022 12:14:22 03/23/20 22 03/25/2022 COMP. METAB OLIC PANEL glucose 110 mg/dL 70-100 high Not Available [address], 66426, 03/25/2022 15:39:16 03/23/20 22 03/25/2022 COMP. METAB OLIC PANEL BUN 33 mg/dL 7-18 high Not Available [address], 80063, 03/25/2022 15:39:16 03/23/20 22 03/25/2022 COMP. METAB OLIC PANEL creatinine 1.4 mg/dL 0.8-1. 3 high Not Available [address], 38974, 03/25/2022 15:39:16 03/23/20 22 03/25/2022 COMP. METAB OLIC PANEL B/C 23.6 ratio Not Available [address], 90223, 03/25/2022 15:39:16 03/23/20 22 03/25/2022 COMP. METAB OLIC PANEL GFR 53.1 mL/mi n abnormal >=60m L/min - Yelena l or midly reduc ed <60mL /min- Decre ased kidne y funct ion <15mL /min - Kidne y failu re [facility] calcu lates estim ated Glome rular Filtr ation Rate (eGFR ) using the Chron ic Kidne y Disea se Epide miolo gy Colla borat ion (CKD- EPI) Equat ion (Steven r et. al 2020) as recom judy d by the Natio nal Kidne y Found ation . eGFR is based on age, serum creat inine , and sex. CKD-E PI does not calcu late eGFR by race, does not apply to child aye (age <18 years ), and shoul d not be used in pregn chayito. Not Available [address], 78683, 03/25/2022 15:39:16 03/23/20 22 03/25/2022 COMP. METAB OLIC PANEL sodium 144 mmol/ L 136-14 5 Not Available [address], 01463, 03/25/2022 15:39:16 03/23/20 22 03/25/2022 COMP. METAB OLIC PANEL potassium 4.0 mmol/ L 3.5-5. 1 Not Available [address], 46538, 03/25/2022 15:39:16 03/23/20 22 03/25/2022 COMP. METAB OLIC PANEL chloride 104 mmol/ L 96-107 Not Available [address], 85263, 03/25/2022 15:39:16 03/23/20 22 03/25/2022 COMP. METAB OLIC PANEL anion gap 13.1 5.0-15 .0 Not Available [address], 11504, 03/25/2022 15:39:16 03/23/20 22 03/25/2022 COMP. METAB OLIC PANEL CO2 27 mmol/ L 21-32 Not Available [address], 81023, 03/25/2022 15:39:16 03/23/20 22 03/25/2022 COMP. METAB OLIC PANEL calcium 9.0 mg/dL 8.5-10 .3 Not Available [address], 09913, 03/25/2022 15:39:16 03/23/20 22 03/25/2022 COMP. METAB OLIC PANEL total protein 7.0 g/dL 6.4-8. 2 Not Available [address], 22757, 03/25/2022 15:39:16 03/23/20 22 03/25/2022 COMP. METAB OLIC PANEL albumin 4.1 g/dL 3.4-5. 0 Not Available [address], 24393, 03/25/2022 15:39:16 03/23/20 22 03/25/2022 COMP. METAB OLIC PANEL globulin 2.9 g/dL Not Available [address], 20577, 03/25/2022 15:39:16 03/23/20 22 03/25/2022 COMP. METAB OLIC PANEL A/G 1.4 ratio 0.8-2. 0 Not Available [address], [address], 03/25/2022 15:39:16 03/23/20 22 03/25/2022 COMP. METAB OLIC PANEL total bilirubin 0.70 mg/dL 0.00-1 .00 Not Available [address], [address], 03/25/2022 15:39:16 03/23/20 22 03/25/2022 COMP. METAB OLIC PANEL AST 24 U/L 0-37 Not Available [address], [address], 03/25/2022 15:39:16 03/23/20 22 03/25/2022 COMP. METAB OLIC PANEL ALT 25 U/L 6-63 Not Available [address], [address], 03/25/2022 15:39:16 03/23/20 22 03/25/2022 COMP. METAB OLIC PANEL alk. phos. 65 U/L 50-136 Not Available [address], [address], 03/25/2022 15:39:16 03/23/20 22 03/25/2022 QUANT IFERO N TB GOLD PLUS, ELVER nil 0.02 IU/mL Not Available [address], [address], 03/25/2022 15:49:29 03/23/20 22 03/25/2022 QUANT IFERO N TB GOLD PLUS, [place] TB1 antigen 0.02 IU/mL Not Available [address], [address], 03/25/2022 15:49:29 03/23/20 22 03/25/2022 QUANT IFERO N TB GOLD PLUS, [place] TB2 antigen 0.02 IU/mL Not Available [address], [address], 03/25/2022 15:49:29 03/23/20 22 03/25/2022 QUANT IFERO N TB GOLD PLUS, ELVER mitogen 13.38 IU/mL Not Available [address], [address], 03/25/2022 15:49:29 03/23/20 22 03/25/2022 QUANT IFERO N TB GOLD PLUS, ELVER tbgp NEGATI VE negati ve Not Available [address], [address], 03/25/2022 15:49:29 03/23/20 22 03/25/2022 C-MALIK CTIVE PROTE IN-QU ANTIT ATIVE C-reactive protein -quant <2.0 mg/L 0.0-9. 0 < crp verif ied, cmd Not Available [address], [address], 03/25/2022 16:05:09 07/27/20 22 07/27/2022 CBC WBC 5.44 K/? ? ?L 4.23-9 .07 Not Available [address], [address], 07/27/2022 10:35:19 07/27/20 22 07/27/2022 CBC RBC 4.50 M/? ? ?L 4.63-6 .08 low Not Available [address], [address], 07/27/2022 10:35:19 07/27/20 22 07/27/2022 CBC HGB 13.3 g/dL 13.7-1 7.5 low Not Available [address], [address], 07/27/2022 10:35:19 07/27/20 22 07/27/2022 CBC HCT 41.0 % 40.1-5 1.0 Not Available [address], [address], 07/27/2022 10:35:19 07/27/20 22 07/27/2022 CBC MCV 91.1 fL 79.0-9 2.2 Not Available [address], [address], 07/27/2022 10:35:19 07/27/20 22 07/27/2022 CBC MCH 29.6 pg 25.7-3 2.2 Not Available [address], [address], 07/27/2022 10:35:19 07/27/20 22 07/27/2022 CBC MCHC 32.4 g/dL 32.3-3 6.5 Not Available [address], [address], 07/27/2022 10:35:19 07/27/20 22 07/27/2022 CBC plt 189 K/? ? ?L 163-33 7 Not Available [address], [address], 07/27/2022 10:35:19 07/27/20 22 07/27/2022 CBC MPV 11.5 fL 9.4-12 .4 Not Available [address], [address], 07/27/2022 10:35:19 07/27/20 22 07/27/2022 CBC neut% 53.1 % 34.0-6 7.9 Not Available [address], [address], 07/27/2022 10:35:19 07/27/20 22 07/27/2022 CBC neut# 2.89 1.78-5 .38 Not Available [address], [address], 07/27/2022 10:35:19 07/27/20 22 07/27/2022 CBC lymph % 28.5 % 21.8-5 3.1 Not Available [address], [address], 07/27/2022 10:35:19 07/27/20 22 07/27/2022 CBC lymph # 1.55 K/? ? ?L 1.32-3 .57 Not Available [address], [address], 07/27/2022 10:35:19 07/27/20 22 07/27/2022 CBC mono% 12.5 % 5.3-12 .2 high Not Available [address], [address], 07/27/2022 10:35:19 07/27/20 22 07/27/2022 CBC mono# 0.68 0.30-0 .82 Not Available [address], [address], 07/27/2022 10:35:19 07/27/20 22 07/27/2022 CBC eo% 5.0 % 0.8-7. 0 Not Available [address], [address], 07/27/2022 10:35:19 07/27/20 22 07/27/2022 CBC eo# 0.27 0.04-0 .54 Not Available [address], [address], 07/27/2022 10:35:19 07/27/20 22 07/27/2022 CBC baso% 0.7 % 0.2-1. 2 Not Available [address], [address], 07/27/2022 10:35:19 07/27/20 22 07/27/2022 CBC baso# 0.04 0.00-0 .08 Not Available [address], [address], 07/27/2022 10:35:19 07/27/20 22 07/27/2022 CBC RDW-CV 12.3 % 11.6-1 4.4 Not Available [address], [address], 07/27/2022 10:35:19 07/27/20 22 07/27/2022 CBC Ig% 0.200 % 0.000- 1.500 Ig % >0.5 Indic ates possi ble Left Shift Not Available [address], [address], 07/27/2022 10:35:19 07/27/20 22 07/27/2022 CBC Ig# 0.010 0.000- 0.093 Not Available [address], [address], 07/27/2022 10:35:19 07/27/20 22 07/27/2022 CBC NRBC% 0.0 % 0.0-0. 2 Not Available [address], [address], 07/27/2022 10:35:19 07/27/20 22 07/27/2022 CBC NRBC# 0.000 0.000- 0.012 Not Available [address], [address], 07/27/2022 10:35:19 07/27/20 22 07/27/2022 ESR sed rate 5.0 0.0-20 .0 Not Available [address], [address], 07/27/2022 12:03:33 07/27/20 22 07/27/2022 COMP. METAB OLIC PANEL glucose 102 mg/dL 70-100 high Not Available [address], [address], 07/27/2022 14:36:10 07/27/20 22 07/27/2022 COMP. METAB OLIC PANEL BUN 28 mg/dL 7-18 high Not Available [address], [address], 07/27/2022 14:36:10 07/27/20 22 07/27/2022 COMP. METAB OLIC PANEL creatinine 1.4 mg/dL 0.8-1. 3 high Not Available [address], [address], 07/27/2022 14:36:10 07/27/20 22 07/27/2022 COMP. METAB OLIC PANEL B/C 20.0 ratio Not Available [address], [address], 07/27/2022 14:36:10 07/27/20 22 07/27/2022 COMP. METAB OLIC PANEL GFR 53.1 mL/mi n abnormal >=60m L/min - Yelena l or midly reduc ed <60mL /min- Decre ased kidne y funct ion <15mL /min - Kidne y failu re [facility] calcu lates estim ated Glome rular Filtr ation Rate (eGFR ) using the Chron ic Kidne y Disea se Epide miolo gy Colla borat ion (CKD- EPI) Equat ion (Steven barba et. al 2020) as recom judy d by the Natio nal Kidne y Found ation . eGFR is based on age, serum creat inine , and sex. CKD-E PI does not calcu late eGFR by race, does not apply to child aye (age <18 years ), and shoul d not be used in pregn chayito. Not Available [address], [address], 07/27/2022 14:36:10 07/27/20 22 07/27/2022 COMP. METAB OLIC PANEL sodium 141 mmol/ L 136-14 5 Not Available [address], [address], 07/27/2022 14:36:10 07/27/20 22 07/27/2022 COMP. METAB OLIC PANEL potassium 4.3 mmol/ L 3.5-5. 1 Not Available [address], [address], 07/27/2022 14:36:10 07/27/20 22 07/27/2022 COMP. METAB OLIC PANEL chloride 105 mmol/ L 96-107 Not Available [address], [address], 07/27/2022 14:36:10 07/27/20 22 07/27/2022 COMP. METAB OLIC PANEL anion gap 5.7 5.0-15 .0 Not Available [address], [address], 07/27/2022 14:36:10 07/27/20 22 07/27/2022 COMP. METAB OLIC PANEL CO2 30 mmol/ L 21-32 Not Available [address], [address], 07/27/2022 14:36:10 07/27/20 22 07/27/2022 COMP. METAB OLIC PANEL calcium 8.9 mg/dL 8.5-10 .3 Not Available [address], [address], 07/27/2022 14:36:10 07/27/20 22 07/27/2022 COMP. METAB OLIC PANEL total protein 7.0 g/dL 6.4-8. 2 Not Available [address], [address], 07/27/2022 14:36:10 07/27/20 22 07/27/2022 COMP. METAB OLIC PANEL albumin 3.9 g/dL 3.4-5. 0 Not Available [address], [address], 07/27/2022 14:36:10 07/27/20 22 07/27/2022 COMP. METAB OLIC PANEL globulin 3.1 g/dL Not Available [address], [address], 07/27/2022 14:36:10 07/27/20 22 07/27/2022 COMP. METAB OLIC PANEL A/G 1.3 ratio 0.8-2. 0 Not Available [address], [address], 07/27/2022 14:36:10 07/27/20 22 07/27/2022 COMP. METAB OLIC PANEL total bilirubin 0.70 mg/dL 0.00-1 .00 Not Available [address], [address], 07/27/2022 14:36:10 07/27/20 22 07/27/2022 COMP. METAB OLIC PANEL AST 19 U/L 0-37 Not Available [address], [address], 07/27/2022 14:36:10 07/27/20 22 07/27/2022 COMP. METAB OLIC PANEL ALT 22 U/L 6-63 Not Available [address], [address], 07/27/2022 14:36:10 07/27/20 22 07/27/2022 COMP. METAB OLIC PANEL alk. phos. 68 U/L 50-136 Not Available [address], [address], 07/27/2022 14:36:10 07/27/20 22 07/27/2022 C-MALIK CTIVE PROTE IN-QU ANTIT ATIVE C-reactive protein -quant <2.0 mg/L 0.0-9. 0 < Verif ied by dimas lozano Not Available [facility] [address], [place], [address], 07/27/2022 14:52:25 01/03/20 22 12/30/2021 bone densi ty Dual-E nergy X-ray Absorp tiomet ry (DXA) scan perfor med on 2. Impres praveen: Based on BMD, diagno sis is consis tent with normal bone densit y. Treatm ent Recomm endati ons: ?Optim ize vitami n D, calciu m, and weight -beari ng and muscle -stren gtheni ng exerci se. Follow -up DXA: Consid er repeat ing this study in three to five years or as clinic donald sexton. Indica tion(s ): Caucas swapnil, rheuma toid arthri tis, baseli ne study due to starti ng predni sone therap y Clinic al Histor y: height loss Techni sp Qualit y: The techni sp qualit y of the study was good. The L3-L4 region was exclud ed due to artifa ct. Result s: Lumbar Spine The BMD measur ed in the L1-L2 region is 1.357 g/cm2. T-scor e = 1.3. Femora l Neck The BMD measur ed at the right femora l neck is 1.180 g/cm2. T-scor e = 0.8. Total Hip The BMD measur ed at the total right proxim al femur is 1.241 g/cm2. T-scor e = 1.0. Interv al Change : No priors availa ble for compar maryam. Fractu re Risk: The estima carlie 10-yea r risk for a major osteop orotic fractu re is 4.7 % and for a hip fractu re 0.4 %. This fractu re risk estima te was calcul ated using FRAX versio n 4.0 and Caucas swapnil race and rheuma toid arthri tis as additi onal clinic al risk factor s for fractu re. This scan was perfor med using the [employer] Pro[employer] y Primo densit ometer at [facility] , [place] [id number] . Read by: Kaley Esparza on, MS, PATIENT REPRESENTATIVE-BC , CCD Suresh Day swapnil: Russell Sánchezlydai carpenter [email or web address] [facility] (Imaging) [address] , [place], [address], 04/13/2022 09:42:07 Result Notes None recorded. Problems Name Problem SNOMED Code Status Onset Date Resolution Date Notes Provider Name and Address Organization Details Recorded Time Tendinitis of flexor tendon of hand 407395810 Active Zach Daigle MD [address] [place] [address], [phone] , [facility] 3 13:10:20 Neutropeni c disorder 634044079 Active 2006 Not Available [facility] 3 03:13:54 Acquired trigger finger 8957621 Active Not Available [facility] 3 03:13:54 Rotator cuff shoulder syndrome and allied disorders Completed 08/07/2013 Not Available [facility] 3 02:03:33 Carpal tunnel syndrome 38131538 Active 2007 Not Available [facility] 3 03:13:54 Essential hypertensi on 89028256 Active Not Available [facility] 3 03:13:54 Rheumatoid arthritis 75306494 Active 2006 Zach Daigle MD [address] [place] [address], [phone] , [facility] 5 18:47:03 Shoulder pain 63355704 Completed 200508/07/2013 Not Available [facility] 3 02:01:03 Tendinitis 85779449 Active 2005 Not Available [facility] 3 03:13:54 Inflammato ry polyarthro dawson 982682777 Active 2006 Not Available [facility] 3 03:13:54 Hip pain 92434368 Completed 200508/07/2013 Not Available [facility] 3 02:01:32 Enthesopat hy of hip region 22345933 Completed 08/07/2013 Not Available [facility] 3 02:03:09 Glucose level outside reference range 794011278 Active 2006 Not Available [facility] 3 03:13:54 Premature beats 91796139 Active Not Available [facility] 3 03:13:54 Hand joint pain 777693791 Completed 200708/07/2013 Not Available [facility] 3 02:02:43 Joint pain 05285900 Active 2005 Not Available [facility] 3 03:13:54 Nonspecifi c abdominal symptom 69247587 Completed 200508/07/2013 Not Available [facility] 3 02:04:29 Acute frontal sinusitis 93610700 Completed 200708/07/2013 Not Available [facility] 3 02:03:29 Low back pain 968573669 Active 2006 Not Available [facility] 3 03:13:54 Neuralgia 42817196 Active 2008 Not Available [facility] 3 03:13:54 Polymyalgi a rheumatica 83273955 Active 2005 Not Available [facility] 3 03:13:54 Problem Notes None recorded. Procedures Surgical History Date Name Laterality Status Provider Name and Address Organization Details Recorded Time 08/12/20 20 Trochanteric Bursae Injection MCM completed Hui Sprague MD [address] [place] [address], [phone], [facility] 08/12/2020 08:44:18 10/11/19 20 Shoulder (Right) Injection completed Zach Daigle MD [address] [place] [address], [phone], [facility] 10/11/2019 13:03:26 07/02/20 12 Trigger Finger Injection RB completed Zach Daigle MD [address] [place] [address], [phone], [facility] 07/02/2012 09:32:00 11/25/19 09 Generic Procedure Template completed Zach Daigle MD [address] [place] [address], [phone], [facility] 11/24/2008 17:30:50 Imaging Results Imaging Date Name Status LastModified by Organiz ation Details LastModified Time 12/30/2021 bone density completed [address] [facility] (Imaging) [address], [place], [address], 04/13/2022 09:42:07 Procedure Notes None recorded. Medical Equipment None Reported. Allergies Allergen ID Allergen Name Allergen Category Reaction Reaction Severity Criticality Documentation Date Start Date Code Code System Note Provider Name and Address Organization Details Recorded Time 7905 Demerol medicatio n Not available Not available Not available 12/22/2008 24520 1 RxNorm Not Available [facility] 1 06:05:20 Medications Name Sig Start Date Stop Date Status Note LastModified by Organization Details LastModified Time Prescript ion - Prior Authoriza tion Request 10/03 completed Not Available Not Available Not Available prednison e 10 mg tablet Take 1 tablet every day by oral route for 7 days. 2021 active not taking Not Available Not Available Not Available atorvasta tin 20 mg tablet Take 1 tablet every day by oral route. active Not Available Not Available No t Available meloxicam 15 mg tablet Take 1 tablet every day by oral route. 2009 active Not Available Not Available Not Avai lable lisinopri l 20 mg tablet Take 2 tablets every day by oral route. active Taking one 40 mg tablet daily Not Available Not Available Not Available prednison e 5 mg tablet Take one tablet daily for 6 weeks then every other day for 6 weeks then stop 2021 active done taking 04/13/22 Not Available Not Available Not Available methotrex ate sodium 2.5 mg tablet 03/05 completed 3 to 6 per week as directed Not Available Not Available Not Available SUE Wrist Brace 2007 active Take 1.00 ea as directed ; dx carpal tunnel synd Not Available Not Available Not Available leucovori n calcium 5 mg tablet 03/05 completed Take 2.00 tabs every week Not Available Not Available Not Available folic acid 1 mg tablet 03/05 completed Take 1.00 tabs every day Not Available Not Available Not Available hydrochlo rothiazid e 25 mg tablet Take 1 tablet every day by oral route. active Not Available Not Available No t Available hydroxych loroquine 200 mg tablet 1 po bid 2008 active Not Available Not Available Not Avai lable metoprolo l tartrate 25 mg tablet Take 1 tablet every day by oral route. 06/23 completed Not Available Not Available Not Available Enbrel SureClick 50 mg/mL (1 mL) subcutane ous pen injector active weekly Not Available Not Available Not Available Vitals Date Recorded Body weight Provider Name an d Address Organization Details Last Updated DateTime 10/12/2021 041194.61 g Lucy Mcgill [facility] 10/12/2021 09:23:34 Date Recorded Body weight Heart rate Systolic blood pressure Diastolic blood pressure Provider Name and Address Organization Details Last Updated DateTime 12/09/2021 819493.88 g 58 /min 130 mm[Hg] 80 mm[Hg] [facility] 12/09/2021 14:41:50 Date Recorded Body weight Heart rate Systolic blood pressure Diastolic blood pressure Provider Name and Address Organization Details Last Updated DateTime 04/13/2022 833005.49 g 61 /min 132 mm[Hg] 66 mm[Hg] Anahi [facility] 04/13/2022 09:37:37 Date Recorded Body weight Heart rate Systolic blood pressure Diastolic blood pressure Provider Name and Address Organization Details Last Updated DateTime 08/03/2022 810365.61 g 67 /min 132 mm[Hg] 68 mm[Hg] [facility] 08/03/2022 09:59:30 Social History Question Answer Notes LastModified by Organizat ion Details LastModified Time Tobacco Smoking Status Former Smoker quit 20 + years ago Not Available [facility] 02/10/2011 02:07:42 What Is Your Level Of Alcohol Consumption? Moderate 3/week [email or web address] Information not available 10/08/2018 What Is Your Level Of Caffeine Consumption? Occasional Information not available 08/04/2011 How Much Tobacco Do You Chew? None Information not available 08/04/2011 What Is Your Occupation? Sales, Appliances Information not available 01/02/2012 Live Alone Or With Others? With Others [email or web address] Information not available 12/31/2012 Marital Status 16 Information not available 08/04/2011 What Was The Date Of Your Most Recent Tobacco Screening? 10/08/2018 Information not available 04/10/2019 Sex: Unknown Functional Status None recorded. Mental Status None recorded. Family History Relationship Description Onset Age of this Age Resolved Age Notes LastModified by Organization Details LastModified Time Father Arthritis Not available 07/08/2013 08:29:25 Notes:no inflam arthritis Medical History Condition Response Tuberculosis N Rheumatoid Arthritis Y Thyroid Disease N Hypertension Y Crohn's Disease N Immunizations Vaccine Type Date Status Note Provider Nam e and Address Organization Details Recorded Time Influenza, split virus, trivalent, preservative 1 completed Not Available [facility] 10/05/2019 02:27:46 influenza, unspecified formulation 6 completed Not Available [facility] 08/03/2011 05:21:29 influenza, unspecified formulation 7 completed Not Available [facility] 08/03/2011 05:21:55 influenza, unspecified formulation 8 completed Not Available [facility] 08/03/2011 05:22:13 Influenza, split virus, trivalent, preservative 2 completed Not Available [facility] 10/05/2019 02:18:35 Influenza, split virus, trivalent, PF 3 completed Not Available [facility] 10/05/2019 02:18:59 Influenza, split virus, trivalent, preservative 0 completed Not Available [facility] 10/05/2019 02:17:26 Novel [id number] 0 completed Not Available [facility] 10/05/2019 02:27:08 Influenza, high-dose, trivalent, PF 4 completed Not Available [facility] 10/05/2019 02:19:02 influenza, unspecified formulation 9 completed Gwen Holly LPN [facility] 10/08/2018 08:04:32 Influenza, split virus, trivalent, preservative 0 completed Not Available [facility] 10/05/2019 02:17:48 COVID-19, mRNA, LNP-S, PF, 100 mcg/0.5mL dose or 50 mcg/0.25mL dose 1 completed Anahi Alba LPN null, [facility] 12/09/2021 14:38:36 COVID-19, mRNA, LNP-S, PF, 100 mcg/0.5mL dose or 50 mcg/0.25mL dose 1 completed NIKITA Lau, [facility] 12/09/2021 14:38:52 COVID-19, mRNA, LNP-S, PF, 100 mcg/0.5mL dose or 50 mcg/0.25mL dose 1 completed NIKITA Lau, [facility] 12/09/2021 14:39:01 Influenza, split virus, quadrivalent, preservative 1 completed NIKITA Lau, [facility] 12/09/2021 14:39:14 Past Encounters Encounter ID Performer Location Encounter Start Date Encounter Closed Date Diagnosis/Indication Diagnosis SNOMED-CT Code Diagnosis ICD10 Code Diagnosis Note [id number] [address] [place] [address] 07/20/2006 11:49:50 07/20/2006 11:50:06 [id number] Anish gonzáles [address] [place] [id number] 07/20/2006 10:02:50 07/24/2006 12:12:35 [id number] [address] [place] [address] 07/31/2006 11:32:57 07/31/2006 11:33:14 [id number] Anish gonzáles [address] [place] [id number] 08/17/2006 08:00:30 08/17/2006 14:20:02 [id number] [address] [place] [address] 09/04/2006 09:43:05 09/04/2006 09:43:13 [id number] Radiology , [facility] [place] [address] 09/04/2006 09:53:41 09/04/2006 13:55:37 [id number] Radiology , [facility] [place] [address] 09/04/2006 00:00:00 10/08/2008 02:02:29 [id number] Rheumatol ogalejo [facility] [place] [address] 09/04/2006 08:37:38 09/05/2006 13:15:00 [id number] LAB - [facility] [place] [address] 09/15/2006 08:50:53 09/15/2006 08:51:01 [id number] Rheumatol ogalejo [facility] [place] [address] 10/02/2006 08:19:10 10/02/2006 11:17:44 [id number] LAB - [facility] [place] [address] 11/08/2006 08:09:55 11/08/2006 08:10:05 [id number] Rheumatol nivia [facility] [place] [address] 11/27/2006 08:28:26 11/27/2006 14:01:37 [id number] LAB - [facility] [place] [address] 11/27/2006 09:00:55 11/27/2006 09:01:02 [id number] Rheumatol ogalejo [facility] [place] [address] 01/08/2007 08:19:03 01/08/2007 16:42:47 [id number] LAB - [facility] [place] [address] 1 01/24/2007 11:47:54 01/24/2007 11:48:05 [id number] LAB - [facility] [place] [address] 02/19/2007 10:02:07 02/19/2007 10:02:15 [id number] Rheumatol ogalejo [facility] [place], [place] [address] 02/19/2007 09:30:03 02/21/2007 16:17:10 [id number] Rheumatol nivia [facility] [place], [place] [address] 04/02/2007 08:17:53 04/03/2007 11:18:11 [id number] LAB - [facility] [place] [address] 1 04/02/2007 09:02:30 04/02/2007 09:02:38 [id number] Rheumatol nivia [facility] [place], [place] [address] 04/30/2007 15:52:19 05/01/2007 07:19:51 [id number] LAB - [facility] [place] [address] 1 05/02/2007 09:07:40 05/02/2007 09:07:44 [id number] Anish gonzáles [facility] [place] [address] 1 05/28/2007 15:25:37 05/29/2007 07:17:35 [id number] LAB - [facility] [place] [address] 06/12/2007 09:06:00 06/12/2007 09:06:04 [id number] Anish gonzáles [facility] [place] [address] 07/09/2007 07:56:56 10/08/2008 02:02:29 [id number] LAB - [facility] [place] [address] 07/09/2007 08:41:26 07/09/2007 08:41:33 [id number] Anish gonzáles [facility] [place] [address] 1 08/20/2007 07:56:40 10/08/2008 02:02:29 [id number] LAB - [facility] [place] [address] 1 08/20/2007 08:46:59 08/20/2007 08:47:16 [id number] Rheumatol nivia [facility] [place] [address] 1 09/14/2007 15:14:33 10/08/2008 02:02:29 [id number] Rheumatol nivia [facility] [place] [address] 1 10/22/2007 08:08:06 10/08/2008 02:02:29 [id number] LAB - [facility] [place] [address] 1 10/22/2007 08:32:03 10/22/2007 08:32:15 [id number] LAB - [facility] [place] [address] 1 11/20/2007 08:12:14 11/20/2007 08:12:29 [id number] LAB - [facility] [place] [address] 1 12/27/2007 08:24:14 12/27/2007 08:24:27 [id number] Rheumatkadi gonzáles [facility] [place] [address] 1 12/27/2007 07:59:06 01/07/2008 09:47:35 [id number] LAB - [facility] [place] [address] 1 03/14/2008 07:53:44 03/14/2008 08:09:18 [id number] Anish gonzáles [facility] [place] [address] 1 03/31/2008 15:49:35 10/08/2008 02:02:29 [id number] [facility] - [facility] [place] [address] 1 06/26/2008 08:20:10 06/26/2008 08:22:11 [id number] Radiology , [facility] [place] [address] 06/30/2008 08:33:02 06/30/2008 12:16:09 [id number] Radiology , [facility] [place] [address] 1 06/30/2008 00:00:00 10/08/2008 02:02:29 [id number] Rheumatol nivia [facility] [place] [address] 1 06/30/2008 08:00:51 10/08/2008 02:02:29 [id number] , [facility], [address] [place] [address] 07/31/2008 07:27:29 10/08/2008 02:02:29 [id number] Rheumatol ogalejo [facility] [place] [address] 1 08/07/2008 10:36:56 10/08/2008 02:02:29 [id number] LAB - [facility] [place] [address] 1 09/29/2008 10:44:37 09/29/2008 10:45:26 [id number] Rheumatol ogalejo [facility] [place] [address] 1 09/29/2008 09:59:54 10/08/2008 02:02:29 [id number] Rheumatol nivia [facility] [place] [address] 1 10/13/2008 13:22:20 10/21/2008 02:02:00 [id number] Rheumatol nivia [facility] [place] [address] 1 10/31/2008 08:25:38 11/03/2008 11:36:34 [id number] Rheumatol nivia [facility] [place] [address] 1 11/24/2008 14:51:46 11/25/2008 09:56:10 [id number] Rheumatol nivia [facility] [place] [address] 1 12/22/2008 15:46:21 12/23/2008 10:39:32 [id number] Rheumatol ogalejo [facility] [place] [address] 1 03/05/2009 07:57:45 03/06/2009 10:25:25 [id number] Physical Therapy, [facility] [place] [address] 03/16/2009 08:04:48 03/17/2009 17:08:44 [id number] Physical Therapy, [facility] [place] [address] 1 04/01/2009 07:52:18 04/02/2009 15:54:51 [id number] Physical Therapy, [facility] [place] [address] 1 04/08/2009 07:58:29 04/09/2009 11:32:30 [id number] Physical Therapy, [facility] [place] [id number] 1 04/10/2009 08:03:28 04/10/2009 13:50:05 [id number] Physical Therapy, [facility] [place] [address] 1 04/16/2009 08:24:57 04/16/2009 13:34:14 [id number] Physical Therapy, [facility] [place] [address] 1 04/22/2009 07:54:57 04/28/2009 14:03:31 [id number] Physical Therapy, [facility] [place] [id number] 1 04/24/2009 08:03:09 04/24/2009 13:23:12 [id number] Physical Therapy, [facility] [place] [address] 1 05/01/2009 08:27:21 05/04/2009 08:58:04 [id number] Physical Therapy, [facility] [place] [address] 1 05/14/2009 08:33:35 05/14/2009 13:33:07 [id number] Physical Therapy, [facility] [place] [address] 1 05/20/2009 08:02:58 05/27/2009 14:58:13 [id number] Rheumatol ogalejo, [facility] [place] [address] 1 06/04/2009 08:54:50 06/05/2009 10:10:57 [id number] LAB - [facility] [place] [address] 1 02/02/2009 12:44:32 02/02/2009 12:44:53 [id number] LAB - [facility] [place] [address] 1 05/20/2009 08:34:16 05/20/2009 08:34:22 [id number] Rheumatol ogy, [facility] [place] [address] 1 09/28/2009 10:50:22 09/29/2009 08:36:26 [id number] Rheumatol ogy, [facility] [place] [address] 1 01/11/2010 08:23:38 01/11/2010 10:36:10 [id number] Rheumatol nivia [facility] [place] [address] 1 07/12/2010 08:14:31 07/12/2010 15:35:36 [id number] Rheumatol nivia [facility] [place] [address] 12/27/2010 07:59:20 12/28/2010 09:05:27 [id number] Rheumatol nivia [facility] [place] [address] 07/04/2011 09:56:04 07/05/2011 09:24:45 [id number] Rheumatol nivia [facility] [place] [address] 01/02/2012 08:17:25 01/02/2012 12:05:48 [id number] Zach Daigel MD Rheumatol nivia [facility] [place] [address] 07/02/2012 08:33:06 07/03/2012 08:30:54 [id number] Rheumatol nivia [facility] [place] [address] 12/31/2012 08:37:01 01/01/2013 08:04:17 [id number] Rheumatol nivia [facility] [place] [place] [address] 07/08/2013 07:51:03 07/09/2013 09:16:13 Rheumatoid arthritis [id number] Seronegati ve, marked response to Enbrel; continue in virtual remission; but seems to have had flare-up involving just one finger. This probably relates to him missing Enbrel for additional week or two. Should go back to dose weekly for 2 weeks then back to every other week. Influenza vaccine needed [id number] Tendinitis of flexor tendon of hand [id number] Findings of mild R 4th finger flexor tendonitis . Previously had trigger phenomenon and this responded to injection last year. Will hold off on re-injecti on at this time, but call if finger fails to improve back to baseline. Long-term drug therapy [id number] On long lines operator Enbrel. Following labs. Reviewed infection risk. Flu shot today. [id number] Rheumatol [address] [place] [address] 01/06/2014 07:53:29 01/06/2014 08:29:51 Rheumatoid arthritis [id number] Seronegati ve, marked response to Enbrel; continue in virtual remission; . If he takes Enbrel every other week he thinks he may get some increase in sx's. Suggested he do it every 10 days for now, Had length question/a nswer about changing insurance. Provided with literature from Enbrel and suggested he call Connor at [facility]. Long-term drug therapy [id number] On long lines operator Enbrel. Following labs. Reviewed infection risk. He would like to try to get Shingles vaccine. If he does this should be off Enbrel 3 weeks before and 3 weeks after vaccinatio n. He is not sure he can afford vaccinatio n now. Script written. [id number] [facility] [place] [address] 07/07/2014 08:06:25 07/08/2014 15:38:31 Rheumatoid arthritis [id number] Seronegati ve, sustained marked response to Enbrel; continues in virtual remission; . At this point he is getting by with Enbrel injections every 3 or 4 weeks and even at the end of that period of time, he is not sure if he really is symptomati c. He is wondering about stopping Enbrel. He also had lengthy questions about changing insurance. He may not be able to afford Enbrel now that his insurance has changed over. I had suggested he contact the [employer] program but he has not yet done so. Influenza vaccine needed [id number] [address] [address] [place] [address] 07/02/2015 10:29:24 07/02/2015 11:17:38 Rheumatoid arthritis 63429953 M06.9 Seronegati ve, previously sustained marked response to Enbrel; Stopped for 3 mo and flared up, but now arthritis back in good control. Continue weekly Enbrel for next month, but then OK to try to see if he can reduce frequency. Up to date on immunizati ons. [id number] Zach Daigle MD Rheumatol nivia, [address], [place] [address] 10/03/2017 08:24:05 10/03/2017 10:45:40 Rheumatoid arthritis 23913077 M06.9 Seronegati ve, previously sustained marked response to Enbrel; Continue weekly Enbrel for next month, but then OK to try to see if he can reduce frequency, but I wouldn't advise going lower than every 3 weeks. . Up to date on immunizati ons.Consid er new shingles vaccine when it comes out. Long-term drug therapy [id number] Z79.899 On snf Enbrel. Following labs. Reviewed infection risk. [id number] Zach Daigle MD Rheumatol nivia, [address] [place] [address] 10/08/2018 07:59:47 10/08/2018 08:23:31 Rheumatoid arthritis 16569335 M06.9 Seronegati ve, previously sustained marked response to Enbrel;He does well taking it every 2 weeks. If he goes longer, definite flare in sxs. There is a problem with insurance coverage for Enbrel. Enbrel was denied. Humira preferred. I will send letter of appeal.Enb rel has been spectacula rly effective for over 8 years. It seems to me medically inadvisabl e to switch to a different kind of TNF rozina which may or may not be as effective. Furthermor e, from financial point of view, he is able to take the Enbrel every 2 weeks, so it is basically half marquez. Cost of switching to Humira would probably higher. Letter of appeal written. Up to date on immunizati ons.Consid er new shingles vaccine. Return 6 - 12 months, sooner if needed. [id number] Zach Daigle MD Rheumatol nivia, [address], [place] [address] 10/11/2019 08:24:33 10/11/2019 09:03:54 Rheumatoid arthritis 62334895 M06.9 Seronegati ve, sustained marked response to Enbrel;He does well taking it every 2 weeks, though lately taking it weekly.Dis cussed it might be reasonable to back off dosing a bit. Return 6-9 mo (Dr Sprague). Up to date on immunizati ons.Consid er new shingles vaccine (Received Zostavax in past). . Return 6 - 12 months, sooner if needed. Bursitis o f right shoulder [id number] 95722 M75.51 Rot cff tendinitis suspect partial tear.Weakn ess in ER. Try local injection and will refer for PT. Long-term drug therapy 057962854 Z79.899 On snf Enbrel. Reviewed labs done 6 mo ago at [facility]. OK. Reviewed infection risk. [id number] Eloina Sprague MD Rheumatkadi [address] [address] 06/23/2020 07:26:38 06/24/2020 14:58:48 Rheumatoid arthritis 54683106 M06.9 Seronegati ve, sustained marked response to Enbrel;Con tinue Enbrel for now.Patien t to get vaccinatio ns record from PCP, he states that he had pneumonia vaccine. Patient to get flu shot.Recei meliza Zostavax in past .Check labs. Pain in ri t hip joint [id number] 02644 M25.551 Will get radiograph s.Arrange for an appointmen t for possible injection for trochanter ic bursitis. [id number] Eloina Sprague MD Rheumatkadi [address] [address] 08/12/2020 08:05:54 08/12/2020 18:46:01 Trochanteric bursitis of right hip [id number] 07775 M70.61 Will inject with kenalog. [id number] Eloina Sprague MD Rhe[address]adi [address] [address] 02/10/2021 07:25:19 02/10/2021 08:03:59 Rheumatoid arthritis 57894095 M06.9 Seronegati ve, sustained marked response to Enbrel; Continue Enbrel for now. Try to take it once every 8 days instead of every 7 days. If worsening of the symptoms, go back to every 7 days. Patient to get vaccinatio ns record from PCP, he states that he had pneumonia vaccine. Patient to get flu shot in the fall. Received Zostavax in past . Patient got the COVID vaccine. Hold Enbrel if fever or any sign of infection. Check labs. Pain in ri ght hip joint [id number] 59259 M25.551 Resolved s/p injection for trochanter ic bursitis. Long-term current use of immunosuppressive drug 383053761 Z79.899 Patient on Enbrel. Patient to get vaccinatio ns record from PCP, he states that he had pneumonia vaccine. Patient to get flu shot in the fall. Received Zostavax in past . Patient got the COVID vaccine. Hold Enbrel if fever or any sign of infection. [id number] Eloina Sprague MD Rheumatol brandy, [address] [place] [address] 10/12/2021 09:16:26 10/12/2021 15:55:44 Rheumatoid arthritis 25362528 M06.9 Seronegati ve, up till this summer he had sustained marked response to Enbrel;Sta rted having symptoms in the summer.He states that it happened after his COVID vaccines.C ontinue Enbrel for now. Check labs. Short course of prednisone . Reassess in 2 weeks. Patient to get vaccinatio ns record from PCP, he states that he had pneumonia vaccine. Received Zostavax in past . Patient got the COVID booster. Hold Enbrel if fever or any sign of infection. Long-term current use of immunosuppressive drug 643610724 Z79.899 Patient on Enbrel. Patient to get vaccinatio ns record from PCP, he states that he had pneumonia vaccine. Received Zostavax in past . Patient got the COVID booster. Hold Enbrel if fever or any sign of infection. Eruption [id number] R21 [id number] Eloina Sprague MD Rheumatol nivia, [address] [place] [address] 10/22/2021 10:01:08 10/25/2021 06:15:13 Rheumatoid arthritis 21497506 M06.9 Seronegati ve, up till this summer he had sustained marked response to Enbrel;Sta rted having symptoms in the summer.He states that it happened after his COVID vaccines. Improved on prednisone . Will give 7 more days and monitor.Ma y be just a flare that will not necessitat e addition or change of therapy as patient has been stable on Enbrel.Con tinue Enbrel for now. Check labs before next visit. Reassess in 6-7 weeks. Patient to get vaccinatio ns record from PCP, he states that he had pneumonia vaccine. Received Zostavax in past . Patient got the COVID booster. Hold Enbrel if fever or any sign of infection. Long-term current use of immunosuppressive drug 789082189 Z79.899 Patient on Enbrel. Patient to get vaccinatio ns record from PCP, he states that he had pneumonia vaccine. Received Zostavax in past . Patient got the COVID booster. Hold Enbrel if fever or any sign of infection. Chronic ki dney disease 105730311 N18.9 No NSAIDs.Jesse id nephrotoxi c agents.Pat ient to follow with pcp. [id number] Eloina Sprague MD Rheumatol [facility], [address] [address] 12/09/2021 14:31:25 12/09/2021 15:04:41 Polymyalgia rheumatica 29383116 M35.3 Rheumatoid arthritis 698 16127 M06.9 Seronegati ve, up till this summer he had sustained marked response to Enbrel;Sta rted having symptoms in the summer.He states that it happened after his COVID vaccines. Improved on prednisone .Symptoms recurred after stopping prednisone .Will give low dose of prednisone 5 mg for 6 weeks then 5 mg every other day for 6 weeks then stop.If recurrence of symptoms, consider adding oral DMARD or changing Enbrel.Pat ient agreeable to the plan. Continue Enbrel for now. Check labs before next visit. Reassess in 4 months. Patient to get vaccinatio ns record from PCP, he states that he had pneumonia vaccine. Received Zostavax in past . Patient got the COVID series. 4th dose discussed. Hold Enbrel if fever or any sign of infection. Long-term current use of immunosuppressive drug 655060008 Z79.899 Patient on Enbrel. Patient to get vaccinatio ns record from PCP, he states that he had pneumonia vaccine. Received Zostavax in past . Patient got the COVID series. 4th dose discussed with patient. Hold Enbrel if fever or any sign of infection. Chronic ki dney disease 761931240 N18.9 No NSAIDs.Jesse id nephrotoxi c agents.GFR improved after stopping NSAIDs. Long-term current use of systemic steroid [id number] 38062 Z79.52 Check bone density.Co ntinue daily MVI. [id number] Eloina Sprague MD Rheumatol [facility], [address] [place] [address] 04/13/2022 09:30:56 04/14/2022 13:07:55 Rheumatoid arthritis 31571070 M06.9 Seronegati ve, up till this summer he had sustained marked response to Enbrel;Sta rted having symptoms in the summer.He states that it happened after his COVID vaccines. Improved on prednisone .Symptoms recurred after stopping prednisone then he reproved with a course of prednisone .Off prednisone for 4.5 weeks and doing ok. Continue Enbrel for now. Hold Enbrel if fever or any sign of infection. Check labs before next visit.If worsening of symptoms, patient to call office. Will consider then switching to Humira. Reassess in 4 months. Patient to get vaccinatio ns record from PCP, he states that he had pneumonia vaccine. Received Zostavax in past . Patient got the COVID series. He is reluctant on getting the second booster as he thinks that his RA flared after the first booster. Long-term current use of immunosuppressive drug 716431171 Z79.899 Patient on Enbrel. Patient to get vaccinatio ns record from PCP, he states that he had pneumonia vaccine. Received Zostavax in past . Patient got the COVID series. He is reluctant on getting the second booster as he thinks that his RA flared after the first booster. Hold Enbrel if fever or any sign of infection. Chronic ki dney disease 395179901 N18.9 No NSAIDs.Jesse id nephrotoxi c agents.GFR improved after stopping NSAIDs. Long-term current use of systemic steroid 1768115060 01431 Z79.52 Bone density normal.Con tinue daily MVI. Cramp in lower limb 4499 89871 R25.2 To check with PCP.Iavnna martin is on stating and HCTZ. Achilles tendinitis 1165 4001 M76.62 Rest and ice.Ivanna martin did not want therapy now as he states that it is improving. [id number] Eloina Sprague MD Rheumatol ogy, [facility] [address] [facility] [place] [address] 08/03/2022 09:49:48 08/15/2022 11:23:02 Polymyalgia rheumatica 08371640 M35.3 Rheumatoid arthritis 698 00756 M06.9 Seronegati ve, up till this summer he had sustained marked response to Enbrel;Sta rted having symptoms in the summer.He states that it happened after his COVID vaccines. Improved on prednisone .Symptoms recurred after stopping prednisone then he reimproved with a course of prednisone .Off prednisone for now. Continue Enbrel.Eff ect is weaning down one day before the injection. He may need methotrexa te to be added, or change enbrel to every 6 days or change to another tNF inhibitor. Since I am leaving, he will discuss the doran with his new rheumatolo gist.Hold Enbrel if fever or any sign of infection. Patient got the flu shot, the COVID booster, pneumonia vaccine and states that he will be getting Shingrix.I informed the patient that I will be leaving the practice and he has to contact his pcp to get a referral for rheumatolo gy. He verbalizes understand ing and has already received my letter. Long-term current use of immunosuppressive drug 186362208 Z79.899 Patient on Enbrel. Hold Enbrel if fever or any sign of infection. Patient ot get a full skin exam, he stated that he has a dermatolog ist. Chronic ki dney disease 859095674 N18.9 No NSAIDs.Jesse id nephrotoxi c agents.Pat ient to follow with PCP on this. Cramp in lower limb 4499 54571 R25.2 Improved. Achilles tendinitis 1165 4001 M76.62 Rest and ice.Needs to be seen by podiatry or ortho.He will discuss with his pcp. Health Concerns Section Related Observation LastModified by Organization Detai ls LastModified Time None Recorded Concern Status LastModified by Organization Details LastModified Time None Recorded Advance Directives Directive None Recorded Payers Encounter Date Sequence Insurance Name Policy Number Policy Duenas Covered Member ID Duenas Member ID Guarantor Name 10/12/2021 2 [employer] (MEDICARE SUPPLEMENT) Yusuf Monterrosoham [id number] [facility] 10/12/2021 1 [place] [facility] Yusuf L Austin [id number] [facility] 10/22/2021 2 [employer] OPTIONS (MEDICARE SUPPLEMENT) Yusuf Austin [id number] [facility] 10/22/2021 1 [place] [facility] Yusuf L Austin [id number] [facility] 12/09/2021 2 [employer] OPTIONS (MEDICARE SUPPLEMENT) Yusuf Austin [id number] [facility] 12/09/2021 1 [place] [facility] Yusuf L Christen [id number] [facility] 04/13/2022 2 [employer] OPTIONS (MEDICARE SUPPLEMENT) Yusuf Austin [id number] [facility] 04/13/2022 1 [place] [facility] Yusuf L Austin [id number] [facility] 08/03/2022 2 [employer] OPTIONS (MEDICARE SUPPLEMENT) Yusuf Austin [id number] [facility] 08/03/2022 1 [place] [facility] Yusuf L Austin [id number] [facility] Notes Date Note Type Note Provider Name and Address Organization Details Recorded Time 10/12/2021 text/html This is a virtual video visit. Patient agreed to this visit via phone or secure telehealth platform due to the COVID -19 pandemic. Patient understands this is a scheduled visit and the usual procedures with regard to billing and confidentiality apply.Patient was notified that the provider location is homePatient location: homeDuring the visit the patient? s medical history and medical record were reviewed. Patient is 71 y old male following-up on rheumatoid arthritis. Patient states that he was doing really well but in the summer he started noticing more painand swelling in his joints as well as stiffness in the morning. pain is 9/10, neck, shoulders, arms, hands, hip, knees, full body.Enbrel was helping a lot and this summer his symptoms started worsening gradually. No side effects reported with enbrel. He reports blotchy itchy area on arms, has tried many different creams that didn't help, has had this for about 6-8 weeks. Labs on 03/08 reviewed. No recent labs/ As per previous office visit with Dr. Daigle:Follow-up for this patient with a history of PMR that evolved into seronegative RA. Sx's started in 2005. He has been on Enbrel since about 2008. A couple of years ago, he got to the point where he only needed to take it every 3-4 weeks. However stopped the Enbrel for a total of 12 weeks so that he could get the shingles vaccine. Towards the end of this significant polyarticular flare, especially hands and shoulders. For the past several months he has been taking the Enbrel weekly. Has just some minor hand discomfort. No more than a few minutes AM stiffness.Has had occasional sharp pains L knee, especially getting up from sitting. Goes away quickly, and no knee pain with prolonged standing at work. He fell 2-3 mo ago, hurt shoulder. certain positions painful and it bothers him at night.Now being treated for HTN. No other medical problems. No recent illness. Hui Sprague MD [address] [place] [address], [phone], [facility] 10/12/2021 11:13:31 10/22/2021 text/html This is a virtual video visit. Patient agreed to this visit via phone or secure telehealth platform due to the COVID -19 pandemic. Patient understands this is a scheduled visit and the usual procedures with regard to billing and confidentiality apply.Patient was notified that the provider location is homePatient location: homeDuring the visit the patient? s medical history and medical record were reviewed. Patient is 71 y old male following-up on rheumatoid arthritis. Patient states that prednisone helped his symptoms. He still has mild aching. He is afraid the ppain will come back. Labs reviewed: increased inflamamtory markers, Cr 1.4, GFR 50. As per previous visitPatient states that he was doing really well but in the summer he started noticing more painand swelling in his joints as well as stiffness in the morning. pain is 9/10, neck, shoulders, arms, hands, hip, knees, full body.Enbrel was helping a lot and this summer his symptoms started worsening gradually. No side effects reported with enbrel. He reports blotchy itchy area on arms, has tried many different creams that didn't help, has had this for about 6-8 weeks. Labs on 03/08 reviewed. No recent labs/ As per previous office visit with Dr. Daigle:Follow-up for this patient with a history of PMR that evolved into seronegative RA. Sx's started in 2005. He has been on Enbrel since about 2008. A couple of years ago, he got to the point where he only needed to take it every 3-4 weeks. However stopped the Enbrel for a total of 12 weeks so that he could get the shingles vaccine. Towards the end of this significant polyarticular flare, especially hands and shoulders. For the past several months he has been taking the Enbrel weekly. Has just some minor hand discomfort. No more than a few minutes AM stiffness.Has had occasional sharp pains L knee, especially getting up from sitting. Goes away quickly, and no knee pain with prolonged standing at work. He fell 2-3 mo ago, hurt shoulder. certain positions painful and it bothers him at night.Now being treated for HTN. No other medical problems. No recent illness. Hui Sprague MD [address] [place] [address], [phone], [facility] 10/22/2021 10:33:04 12/09/2021 text/html Patient is 71 y old male following-up on rheumatoid arthritis.Patient states that he was having pain in the past few weeks after he stopped prednisone.He is on Enbrel and is tolerating the medication, no side effects reported.Labs reviewed. Patient is 71 y old male following-up on rheumatoid arthritis. Patient states that prednisone helped his symptoms. He still has mild aching. He is afraid the pain will come back. Labs reviewed: increased inflammatory markers, Cr 1.4, GFR 50. As per previous visitPatient states that he was doing really well but in the summer he started noticing more pain and swelling in his joints as well as stiffness in the morning. pain is 9/10, neck, shoulders, arms, hands, hip, knees, full body.Enbrel was helping a lot and this summer his symptoms started worsening gradually. No side effects reported with enbrel. He reports blotchy itchy area on arms, has tried many different creams that didn't help, has had this for about 6-8 weeks. Labs on 03/08 reviewed. No recent labs/ As per previous office visit with Dr. Daigle:Follow-up for this patient with a history of PMR that evolved into seronegative RA. Sx's started in 2005. He has been on Enbrel since about 2008. A couple of years ago, he got to the point where he only needed to take it every 3-4 weeks. However stopped the Enbrel for a total of 12 weeks so that he could get the shingles vaccine. Towards the end of this significant polyarticular flare, especially hands and shoulders. For the past several months he has been taking the Enbrel weekly. Has just some minor hand discomfort. No more than a few minutes AM stiffness.Has had occasional sharp pains L knee, especially getting up from sitting. Goes away quickly, and no knee pain with prolonged standing at work. He fell 2-3 mo ago, hurt shoulder. certain positions painful and it bothers him at night.Now being treated for HTN. No other medical problems. No recent illness. Hui Sprague MD [address] [place] [address], [phone], [facility] 12/09/2021 15:08:12 04/13/2022 text/html Patient is 72 y old male following-up on rheumatoid arthritis. Patient states that he is feeling better than last visit. Prednisone seems to have helped.He stopped prednisone about 4.5 weeks ago. He gets some aching in the big joints but it is manageable.He has pain in his left achilles tendon, he was gardening 3 weeks ago and he thinks he may have overstretched it.He also complains of cramps in his legs at night.He is on Enbrel and is tolerating the medication, no side effects reported.Labs reviewed. Bone density normal. Hui Sprague MD [address] [place] [address], [phone], [facility] 04/13/2022 10:05:38 08/03/2022 text/html Patient is 72 y old male following-up on rheumatoid arthritis. Patient states that he is feeling better , he thinks that the flare he previously had has calmed down.He is off prednisone.He states that he feels the aching and pain one day before the Enbrel dose.He has pain in his left achilles tendon.Cramps in his feet have improved.He is on Enbrel and is tolerating the medication, no side effects reported.Labs reviewed. Bone density normal. Hui Sprague MD [address] [place] [address], [phone], [facility] 08/03/2022 10:23:27
== END 2024-12-18 11:44 | disposition home or self-care (01) ==
LOC: HO.RHE 11:05
PROVIDERS: PCP Nurse Practitioner Family; Visit Provider Student in an Organized Health Care Education/Training Program
DX: M06.00 Rheumatoid arthritis without rheumatoid factor, unspecified site (principal); D47.2 Monoclonal gammopathy; M67.912 Unspecified disorder of synovium and tendon, left shoulder; Z51.81 Encounter for therapeutic drug level monitoring; Z79.620 Long term (current) use of immunosuppressive biologic
CPT/HCPCS: 99214; G2211

== ENCOUNTER → 2024-12-18 11:05 | Outpatient (BNVA) | payer MEDICARE, SELFPAY | PROVIDERS: PCP Nurse Practitioner Family; Visit Provider Student in an Organized Health Care Education/Training Program | DX: M06.00 Rheumatoid arthritis without rheumatoid factor, unspecified site (principal); M67.912 Unspecified disorder of synovium and tendon, left shoulder; D47.2 Monoclonal gammopathy; Z51.81 Encounter for therapeutic drug level monitoring; Z79.620 Long term (current) use of immunosuppressive biologic | CPT/HCPCS: 99212 ==

== ENCOUNTER 2025-04-25 10:34 | Outpatient (AMB) | payer MEDICARE, SELFPAY ==
--- OUTSIDE RECORDS SUMMARY | 2025-04-25 10:36 | XMS_ITS | Clinical Summary ---
Author Organization [facility], Address [address] [place] [id number] Phone Care Team Providers Care Longwall Foreman Name Role Phone Edward Rucker Primary Care Provider [phone] Social History Tobacco Use Types Packs/Day Years Used Date Smoking Tobacco: Never Assessed Sex and Gender Information Value Date Recorded Sex Assigned at Not on file Legal Sex Male 4:02 PM EST Gender Identity Not on file Sexual Orientation Not on file Plan of Treatment Health Maintenance Due Date Last Done Comments Pneumococcal Vaccine: 50+ Ye ars (1 of 1 - PCV) 1999 Influenza Vaccine (#1) 2025 Hepatitis B Vaccine Aged Out No longe r eligible based on patient's age to complete this topic Insurance Medicare [facility] Care Teams Longwall Foreman Relationship Specialty Start Date End Date Edward Rucker PA [address] [place] [id number] PCP - General Physician Zipper Setter Lockstitch 08/18/21
--- OUTSIDE RECORDS SUMMARY | 2025-04-25 10:36 | XMS_ITS | Clinical Summary ---
Author Organization [facility] Address [facility] [place] [address] Care Team Providers Care Tank House Operator Name Role Phone Christy Arthur MD Primary Care Provider [phone] Allergies Active Allergy Reactions Criticality Noted Date Comments Meperidine 08/12/2019 Medications amLODIPine (Norvasc) 5 mg Tablet TAKE 1 TABLET(5 MG) BY MOUTH DAILY 09/04/2020 Active etanercept (ENBREL) 25 mg (1 mL) Recon Soln Active hydroCHLOROthiaz darling (Hydrodiuril) 25 mg Tablet Take 25 mg by mouth Daily. Active lisinopriL (Prinivil;Zestri l) 40 mg Tablet Take 40 mg by mouth Daily. Active Active Problems Problem Noted Date Diagnosed Date Bradycardia 08/12/2019 Hypertension 08/12/2019 Syncope and collapse 08/12/2019 Social History Tobacco Use Types Packs/Day Years Used Date Smoking Tobacco: Never Smokeless Tobacco: Never Sex and Gender Information Value Date Recorded Sex Assigned at Not on file Legal Sex Male 8:49 AM EST Gender Identity Not on file Sexual Orientation Not on file Last Filed Vital Signs Vital Sign Reading Time Taken Comments Blood Pressure 184/81 12/30/2020 7:55 AM EDT Pulse - - Temperature 36.3 C (97.3 F) 12/30/2020 7:55 AM EDT Respiratory Rate - - Oxygen Saturation - - Inhaled Oxygen Concentration - - Weight - - Height - - Body Mass Index - - Plan of Treatment Health Maintenance Due Date Last Done Comments Hepatitis C Screening 1968 Tetanus/Diphtheria/Pertussis Vaccines (1 - Tdap) 02/01 Pneumoccocal Vaccine: 50+ (1 of 1 - PCV) 1999 Zoster vaccine (1 of 2) 1999 Advance Directive 02/02/2004 RSV Vaccine (1 - 1-dose 75+ series) 02/02/2024 Covid-19 Vaccine (2023- season) 2024 Influenza (Flu) vaccine (1 o f 1 - Influenza standard series) 05/19/2025 Insurance MEDICARE [facility] Care Teams Tank House Operator Relationship Specialty Start Date End Date Christy Arthur MD PCP - General Internal Medicine 12/17/20
--- NOTE | 2025-04-25 10:43 | MHC.OFFVIS ---
Vital Signs 04/25/25 10:58 Height 5 ft 11 in Weight 237 lb 10.533 oz BMI 33.1 BP 124/80 Blood Pressure Location Lt brachial Position Sitting Pulse 56 Pulse Source Pulse Oximeter Pulse Oximetry (%) 97 Oxygen Delivery Method Room Air Intake Visit Reasons: RA Intake Note: Patient presents for RA follow up. Allergies meperidine (From Demerol) Adverse Reaction (Unknown, Verified 04/25/25 10:48) Hypertension, Seizure, Low Heart Rate HPI Comments Details: Patient is a 75-year-old male with hypertension, hyperlipidemia, MGUS and seronegative rheumatoid arthritis here today for follow up Interval History: Patient last seen 12/18/24 with me - On Simponi Aria infusions 2mg/kg every 8 weeks - Doing well with no return of joint pain - Referred to [facility] for MGUS Since then , - [facility] said nothing further to do, just follow Today, - On Simponi Aria infusions 2mg/kg every 8 weeks - Doing well overall - Complains of knee pain with ascending the stairs - Also sometimes will have back pain and shoulder pain - No AM stiffness Rheumatologic History: Seronegative RA dx 2006 MTX ineffective Enbrel 2007 effective Initial history: This is a 74-year-old male with seronegative RA who presents as a new patient. Patient was diagnosed with PMR some time 1006 and shortly after it was really able to seronegative RA. He was on prednisone for some time. He also stated that he was on methotrexate for some time and it was ineffective. He was switched to Enbrel in 2007 and it has been quite effective. He has remained on Enbrel regularly this 2007. Patient was getting Enbrel through [employer]. There was an issue with his insurance from 09/06/2023 to 01/06/2024 that time he could not get the Enbrel but he had Enbrel from previous prescriptions and he was using it every other week and he felt much more stiffness and pain. He is now on Enbrel regularly weekly. Today he feels quite well overall. Only intermittent joint pain and stiffness. He would take naproxen about once a week as needed for joint pain or stiffness. He is unaware of any family history of an autoimmune rheumatic disease. Denies any recent infections. Current Rheumatology Medication(s): Simponi Aria infusions 2mg/kg IV every 8 weeks [facility] Medical History Obesity ASIYA (obstructive sleep apnea) Hypertension GERD (gastroesophageal reflux disease) Surgical History Hx of nasal septoplasty Hx of adenoidectomy Hx of tonsillectomy History of carpal tunnel surgery Family History Father Heart failure Mother Alzheimer dementia Social History Household Members: Spouse Housing: House Alcohol intake: current Patient Tobacco Use Status: Former Tobacco user Review of Systems Const Details: Review of Systems Constitutional: Denies fever, chills, weight loss ENT: Denies vision changes, eye pain or eye redness, dental caries, dry mouth GI: Denies nausea, vomiting, diarrhea, abdominal pain, change in BM Pulm: Denies SOB, FIGUEROA, hemoptysis, wheezing Cards: Denies chest pain, palpitations Skin: Denies Raynaud's, rash, nail changes, photosensitivity, INSPECTOR RAG SORTING: Denies headaches, weakness, paresthesias, recurrent falls MSK: as per HPI All other systems reviewed and are unremarkable except noted above Physical Exam Exam Exam: Vital signs reviewed Physical Examination CONSTITUITIONAL Patient alert and cooperative. Well appearing and in no apparent painful distress MSK Hands Right Hand: Able to make a fist. No swelling or tenderness to palpation of these joints. Left Hand: Able to make a fist. No swelling or tenderness to palpation of these joints. Prominent Herbedens and Bouchards nodes noted bilaterally Wrists Right Wrist: Full ROM. 70 degrees of wrist flexion, 80 degrees of wrist extension. No swelling or TTP Left Wrist: Full ROM. 70 degrees of wrist flexion, 80 degrees of wrist extension. No swelling or TTP Elbows Right Elbow: Full ROM. No swelling or TTP. No TTP of the medial and lateral epicondyles Left Elbow: Full ROM. No swelling or TTP. No TTP of the medial and lateral epicondyles Shoulders Right shoulder: Full ROM. No swelling noted. No TTP of the AC joint, subacromial bursa or posterior shoulder Left shoulder: Full ROM. No swelling noted. No TTP of the AC joint, subacromial bursa or posterior shoulder Positive yañez eleuterio manuever bilaterally Knees Right knee: Full ROM. No swelling noted. No TTP of the knee joint lie or pes anserine bursa Left knee: Full ROM. No swelling noted. No TTP of the knee joint lie or pes anserine bursa. Crepitations felt bilaterally Ankles Right ankle: Good ankle dorsiflexion and plantar flexion. No swelling. No TTP of the ankle joint Left ankle: Good ankle dorsiflexion and plantar flexion. No swelling. No TTP of the ankle joint Feet Right foot: Negative squeeze test Left foot: Negative squeeze test Tender points? No tenderness to palpation of the bilateral trapezius, supraspinatus, anterior costochondral junctions, bilateral suboccipital muscle insertions SKIN No rashes Vital Signs: BMI result Body Mass Index 33.1 Results Reviewed Results Reviewed: Laboratory Tests 11/13/24 10:08 WBC 4.5 L RBC 4.38 L Hgb 13.2 L Hct 38.8 L Plt Count 170 ESR 10 Sodium 143 Potassium 3.9 Chloride 108 Carbon Dioxide 25 BUN 33 H Creatinine 1.38 Total Bilirubin 0.4 AST 30 ALT 22 C-Reactive Protein < 0.10 Assessment & Plan Assessment & Plan (1) Seronegative rheumatoid arthritis: Comment: dx 2007 MTX ineffective Enbrel 2008 effective Code(s): M06.00 - Rheumatoid arthritis without rheumatoid factor, unspecified site Category: Medical Plan: #Seronegative RA Patient is a 75-year-old male with seronegative rheumatoid arthritis here today for follow up. Disease is currently in remission on Simponi Aria infusions. Plan - Continue simponi aria infusions 2mg/kg every 8 weeks - [facility] - RTC 4 months - Labs before visit: CBC, CMP, ESR, CRP (2) MGUS (monoclonal gammopathy of unknown significance): Code(s): D47.2 - Monoclonal gammopathy Category: Medical Plan: #MGUS Positive SPEP. Referred to Hematology. Nothing to do. Continue to monitor as per Heme (3) Encounter for monitoring golimumab therapy: Code(s): Z51.81 - Encounter for therapeutic drug level monitoring; Z79.620 - ad terminal makeup operator (current) use of immunosuppressive biologic Plan: #Long-term Use of TNF Inhibitors: Golimumab Discussed with the patient the benefits and risks of TNF inhibitors for the management of the rheumatic condition Benefits include reduce pain, maintenance of remission and reduction of flares as well as ?progression of the disease Risks include injection sites/infusion reactions, serious infections (such as bacterial infections, opportunistic infections), malignancy, delaminating syndromes, autoimmune phenomena, CHF exacerbations, palmar plantar psoriasis and cytopenias Recommended rotating injection sites, and holding medication during and for up to 1 week after resolution of a febrile illness or open skin wound Plan I spent 30 minutes reviewing the record and labs, taking a history, examining the patient, discussing the treatment plan, ordering diagnostic work up and documenting in the medical record Coding Level of Care Code Est Pt Level 4 (41247) Complex EM visit Add On G2211 Diagnoses Seronegative rheumatoid arthritis M06.00 MGUS (monoclonal gammopathy of unknown significance) D47.2 Encounter for monitoring golimumab therapy Z51.81; Z79.620
[2025-04-25 10:58] VITALS: BP 124/80; PULSE 56; O2SAT 97; BMI 33.1
== END 2025-04-25 11:25 | disposition home or self-care (01) ==
LOC: HO.RHES 10:35
PROVIDERS: PCP Nurse Practitioner Family; Visit Provider Student in an Organized Health Care Education/Training Program
DX: M06.00 Rheumatoid arthritis without rheumatoid factor, unspecified site (principal); D47.2 Monoclonal gammopathy; Z51.81 Encounter for therapeutic drug level monitoring; Z79.620 Long term (current) use of immunosuppressive biologic
CPT/HCPCS: 99214; G2211

== ENCOUNTER → 2025-04-25 10:34 | Outpatient (BNVA) | payer MEDICARE, SELFPAY | PROVIDERS: PCP Nurse Practitioner Family; Visit Provider Student in an Organized Health Care Education/Training Program | DX: Z51.81 Encounter for therapeutic drug level monitoring (principal); M06.00 Rheumatoid arthritis without rheumatoid factor, unspecified site; D47.2 Monoclonal gammopathy; Z79.620 Long term (current) use of immunosuppressive biologic | CPT/HCPCS: 99212 ==

== ENCOUNTER 2025-08-29 14:33 | Outpatient (AMB) | payer MEDICARE, SELFPAY ==
--- NOTE | 2025-08-29 14:49 | MHC.OFFVIS ---
Vital Signs 08/29/25 14:55 Height 5 ft 11 in Weight 231 lb 7.766 oz BMI 32.3 BP 140/74 H Blood Pressure Location Lt brachial Position Sitting Pulse 58 Pulse Source Pulse Oximeter Pulse Oximetry (%) 97 Oxygen Delivery Method Room Air Intake Visit Reasons: follow up Intake Note: Patient presents today for RA follow up and test results. Job Change Crew Member Required: No Information Interpreted: non-clinical & clinical Accompanied by: Self / Same As Patient Allergies meperidine (From Demerol) Adverse Reaction (Unknown, Verified 08/29/25 14:55) Hypertension, Seizure, Low Heart Rate Medication List - Last Reconciled 08/29/25 by Ingrid Lomax MD ezetimibe 10 mg PO DAILY golimumab (Simponi) 100 mg subcut Q4W hydrochlorothiazide 25 mg PO DAILY lisinopril 40 mg PO DAILY triamterene-hydrochlorothiazid 37.5-25 mg 1 cap PO DAILY HPI Comments Details: Patient is a 75-year-old male with hypertension, hyperlipidemia, MGUS and seronegative rheumatoid arthritis here today for follow up Interval History: Patient last seen 04/25/25 with me - On Simponi Aria infusions 2mg/kg every 8 weeks - Doing well overall - Complains of knee pain with ascending the stairs - Also sometimes will have back pain and shoulder pain - No AM stiffness Today - On Simponi Aria infusions 2mg/kg every 8 weeks - presenting for a routine follow-up for the management of rheumatoid arthritis. - He is currently receiving Simponi infusions every 8 weeks and reports that the treatment is working very well, with less generalized pain. - He was previously on Humira but was switched to Simponi due to insurance coverage issues. - His last infusion was on August 22, and he noted that he was feeling a bit down before the infusion, which he felt indicated a need for the next dose. - He complains of back pain that he attributes to daily wear and tear, which improves with rest and is absent in the morning. - He also mentions a chronic inability to make a tight fist, which he states has always been that way. Rheumatologic History: Seronegative RA dx 2007 MTX ineffective Enbrel 2008 effective Initial history: This is a 74-year-old male with seronegative RA who presents as a new patient. Patient was diagnosed with PMR some time 1007 and shortly after it was really able to seronegative RA. He was on prednisone for some time. He also stated that he was on methotrexate for some time and it was ineffective. He was switched to Enbrel in 2007 and it has been quite effective. He has remained on Enbrel regularly this 2007. Patient was getting Enbrel through [employer]. There was an issue with his insurance from 09/06/2023 to 01/06/2024 that time he could not get the Enbrel but he had Enbrel from previous prescriptions and he was using it every other week and he felt much more stiffness and pain. He is now on Enbrel regularly weekly. Today he feels quite well overall. Only intermittent joint pain and stiffness. He would take naproxen about once a week as needed for joint pain or stiffness. He is unaware of any family history of an autoimmune rheumatic disease. Denies any recent infections. Current Rheumatology Medication(s): Simponi Aria infusions 2mg/kg IV every 8 weeks [facility] Medical History Obesity ASIYA (obstructive sleep apnea) Hypertension GERD (gastroesophageal reflux disease) Surgical History Hx of nasal septoplasty Hx of adenoidectomy Hx of tonsillectomy History of carpal tunnel surgery Family History Father Heart failure Mother Alzheimer dementia Social History Household Members: Spouse Housing: House Alcohol intake: current Patient Tobacco Use Status: Former Tobacco user Review of Systems Narrative Review of Systems - Constitutional: Reports feeling a little down prior to his last infusion. - Musculoskeletal: Denies significant all-over pain. - Reports back pain with activity that resolves with rest. - Reports chronic inability to make a tight fist. All other systems reviewed and are unremarkable except noted above Physical Exam Exam Exam: Vital signs reviewed Physical Examination CONSTITUITIONAL Patient alert and cooperative. Well appearing and in no apparent painful distress MSK Hands Right Hand: No swelling or tenderness to palpation of the MCPs, PIPs or DIPs. Left Hand: No swelling or tenderness to palpation of the MCPs, PIPs or DIPs. Wrists Right Wrist: Full ROM to flexion and extension. No swelling or TTP Left Wrist: Full ROM to flexion and extension. No swelling or TTP Elbows Right Elbow: Full ROM. No swelling or TTP. No TTP of the medial epicondyle. No TTP of the lateral epicondyle Left Elbow: Full ROM. No swelling or TTP. No TTP of the medial epicondyle. No TTP of the lateral epicondyle Shoulders Right shoulder: Full ROM. No swelling noted. No TTP of the AC joint. No TTP of the subacromial bursa. No TTP of the posterior shoulder Left shoulder: Full ROM. No swelling noted. No TTP of the AC joint. No TTP of the subacromial bursa. No TTP of the posterior shoulder Knees Right knee: Full ROM. No swelling noted. No TTP of the knee joint line. No TTP of pes anserine bursa Left knee: Full ROM. No swelling noted. No TTP of the knee joint line. No TTP of pes anserine bursa. Ankles Right ankle: Good ankle dorsiflexion and plantar flexion. No swelling. No TTP of the ankle joint Left ankle: Good ankle dorsiflexion and plantar flexion. No swelling. No TTP of the ankle joint Feet Right foot: Negative squeeze test Left foot: Negative squeeze test Tender points? No tenderness to palpation of the bilateral trapezius, supraspinatus, anterior costochondral junctions, bilateral suboccipital muscle insertions SKIN No rashes Vital Signs: Last Vital Signs Pulse 58 08/29/25 14:55 BP 140/74 H 08/29/25 14:55 Pulse Ox 97 08/29/25 14:55 Oxygen Delivery Method Room Air 08/29/25 14:55 BMI result Body Mass Index 32.3 Results Reviewed Results Reviewed: 08/28/2025 [facility] WBC 4.5 Hb 11.9 Plt 193 BUN 42 Cr 1.76 eGFR 40 AST 26 ALT 15 ESR 24 CRP <3 T Spot Negative Hep B Negative Hep C Negative Assessment & Plan Assessment & Plan (1) Seronegative rheumatoid arthritis: Comment: dx 2007 MTX ineffective Enbrel 2008 effective Code(s): M06.00 - Rheumatoid arthritis without rheumatoid factor, unspecified site Category: Medical Plan: #Seronegative RA Patient is a 75-year-old male with seronegative rheumatoid arthritis here today for follow up. The patient reports significant improvement in his symptoms with Simponi infusions every 8 weeks. It was explained that rheumatoid arthritis is a chronic condition that typically requires lifelong treatment, and discontinuing medication often leads to a flare. The patient's experience of feeling worse before his last infusion supports the need for continued therapy. The plan is to continue Simponi infusions every 8 weeks and to schedule a follow-up appointment in six months. Plan - Continue simponi aria infusions 2mg/kg every 8 weeks - RTC 6 months - Labs before visit: CBC, ALT, AST, Cr, ESR, CRP (2) MGUS (monoclonal gammopathy of unknown significance): Code(s): D47.2 - Monoclonal gammopathy Category: Medical Plan: #MGUS Positive SPEP. Referred to Hematology. Nothing to do. Continue to monitor as per Heme (3) Encounter for monitoring golimumab therapy: Code(s): Z51.81 - Encounter for therapeutic drug level monitoring; Z79.620 - senior living (current) use of immunosuppressive biologic Plan: #Long-term Use of TNF Inhibitors: Golimumab Discussed with the patient the benefits and risks of TNF inhibitors for the management of the rheumatic condition Benefits include reduce pain, maintenance of remission and reduction of flares as well as ?progression of the disease Risks include injection sites/infusion reactions, serious infections (such as bacterial infections, opportunistic infections), malignancy, delaminating syndromes, autoimmune phenomena, CHF exacerbations, palmar plantar psoriasis and cytopenias Recommended rotating injection sites, and holding medication during and for up to 1 week after resolution of a febrile illness or open skin wound Plan I discussed with the patient that his current treatment with Simponi is effective in managing his symptoms. I clarified that he was switched from Humira to Simponi due to prior insurance issues and that the letters regarding Humira are not relevant to his current care. We reviewed that rheumatoid arthritis is a chronic condition requiring long-term medication to prevent flares, analogous to taking medication for high blood pressure. I explained that while weaning off medication is an option, it results in disease flares for the vast majority of patients. I addressed his concerns about an outstanding bill from [employer], advising him to request that they resubmit the claim and offering to provide supporting documentation for the medical necessity of the monitoring labs required for his therapy. I informed him that my office will check on the insurance authorization for Simponi. The plan is to continue his current treatment and follow up in six months. I spent 30 minutes reviewing the record and labs, taking a history, examining the patient, discussing the treatment plan, ordering diagnostic work up and documenting in the medical record Orders: Orders C Reactive Protein 6 Months Z79.899 - Other intermodal owner operator truck driver (current) drug therapy Complete Blood Count Auto Diff 6 Months Z79.899 - Other intermodal owner operator truck driver (current) drug therapy Alanine Aminotransferase 6 Months Z79.899 - Other usp (current) drug therapy Aspartate Amino Transferase 6 Months Z79.899 - Other intermodal owner operator truck driver (current) drug therapy Creatinine 6 Months Z79.899 - Other intermodal owner operator truck driver (current) drug therapy Erythrocyte Sedimentation Rate 6 Months Z79.899 - Other intermodal owner operator truck driver (current) drug therapy Coding Level of Care Code Est Pt Level 4 (66044) Add On Problem Visit Only Diagnoses Seronegative rheumatoid arthritis M06.00 MGUS (monoclonal gammopathy of unknown significance) D47.2 Encounter for monitoring golimumab therapy Z51.81; Z79.620
[2025-08-29 14:55] VITALS: BP 140/74; PULSE 58; O2SAT 97; BMI 32.3
--- OUTSIDE RECORDS SUMMARY | 2025-08-29 19:49 | XMS_ITS | Clinical Summary ---
Author Organization [facility] Address [facility] [place] [address] Care Team Providers Care Deaf/Hard Of Hearing Specialist Name Role Phone Christy Arthur MD Primary Care Provider [phone] Allergies Active Allergy Reactions Criticality Noted Date [...] - 1-dose 75+ series) 02/02/2024 Covid-19 Vaccine (2024- season) 2025 Influenza (Flu) vaccine (1 o f 1 - Influenza standard series) 05/19/20[address] [place] [id number] [facility] [place] [address] [place] [id number] Care Teams Deaf/Hard Of Hearing Specialist Relationship Specialty Start Date End Date Christy Arthur MD PCP - General Internal Medicine 12/17/20
--- OUTSIDE RECORDS SUMMARY | 2025-08-29 19:49 | XMS_ITS | Clinical Summary ---
Author Organization [facility] Address [address] [facility] [address] [place] [phone] Phone Care Team Providers Care Surveyor'S Assistant Name Role Phone Saurav Jeffery NP Primary Care Provider [phone] Allergies Active Allergy Reactions Criticality Noted Date Comments Meperidine 08/12/2019 Medications lisinopril (PRINIVIL,ZESTR IL) 40 MG tablet Take 40 mg by mouth daily. Active ezetimibe (ZETIA) 10 mg tablet Take 10 mg by mouth daily. 4 Active omega-3 fatty acids-fish oil 340-1,000 mg Cap Take by mouth daily. Active multivitamin-mi nerals-lutein (CENTRUM SILVER) Tab Take 1 tablet by mouth daily. Active adalimumab (HUMIRA) 40 mg/0.8 mL syringe kit Inject 40 mg under the skin once every 8 weeks. Infusions Active triamterene-hyd roCHLOROthiazid e (DYAZIDE) 37.5-25 mg per capsule Take 1 capsule by mouth every morning. 90 capsule 5 5 Active Active Problems Problem Noted Date Diagnosed Date Syncope and collapse 08/12/2019 Hypertension 08/12/2019 Bradycardia 08/12/2019 Family History Medical History Relation Comments Heart disease Paternal Grandfather Relation Status Comments Paternal Grandfather Social History Tobacco Use Types Packs/Day Years Used Date Smoking Tobacco: Former Smokeless Tobacco: Never Tobacco Cessation:Counseling Given: Not Answered Alcohol Use Standard Drinks/Week Comments Yes 0 (1 standard drink = 0.6 oz pur e alcohol) Education Answer Date Recorded Are you interested in more education? Not on talia e 01/13/2023 Are you concerned about learning? Not on file 01/13/2023 No 01/13/2023 No 01/13/2023 Digital Access Answer Date Recorded No 02/11/2023 No 02/11/2023 Reliable internet access at home? Not on file 02/11/2023 Device with a working camera? Not on file Sex and Gender Information Value Date Recorded Sex Assigned at Not on file Legal Sex Male 11:09 AM EDT Gender Identity Not on file Sexual Orientation Not on file Last Filed Vital Signs Vital Sign Reading Time Taken Comments Blood Pressure 140/80 03/14/2025 8:07 AM EDT Pulse 60 03/14/2025 8:07 AM EDT Temperature - - Respiratory Rate - - Oxygen Saturation 99% 03/14/2025 8:07 AM EDT Inhaled Oxygen Concentration - - Weight 108.4 kg (239 lb) 03/14/2025 8:07 AM EDT Height 180.3 cm (5' 10.98 ) 03/14/2025 8:07 AM E DT Body Mass Index 33.35 03/14/2025 8:07 AM EDT Plan of Treatment Upcoming Encounters Date Type Department Care Team (Late st Contact Info) Description 03/16/2026 10:00 AM EDT Office Visit [facility] [address] [place] [address] 3rd Floor, [address] [place] [address] [phone] Shalom Corrales MD [address] [place] [address], [address] [place] [phone] [email or web address] Health Maintenance Due Date Last Done Comments CREATININE LEVEL 1949 POTASSIUM LEVEL 1949 DEPRESSION SCREENING 1961 SMOKING Hx and SMOKELESS TOBACCO SCREENING 1962 HEPATITIS C SCREENING 1967 ZOSTER VACCINES (1 of 2) 12/11/2014 10/16/2014 RSV VACCINE (1 - 1-dose 75+ series) 02/02/2024 Adult Td,Tdap Booster 10/09/2024 10/09/2014 INFLUENZA VACCINE (#1) 2025 9, 07/07/2014, 07/08/2013, Additional history exists COVID-19 VACCINE ( season) 2025 2021, 01/02/2021, 12/31/2020 BLOOD PRESSURE 09/13/2025 03/14/2025 LIPID PANEL 01/11/2029 01/12/2024 PNEUMOCOCCAL VACCINES (50+ years) Completed 11/30/2015, 10/09/2014, 06/23/2009 HEPATITIS A VACCINES Aged Out No long er eligible based on patient's age to complete this topic HIB VACCINES Aged Out No longer eligi ble based on patient's age to complete this topic MENINGOCOCCAL VACCINES (ACWY) Aged Out No longer eligible based on patient's age to complete this topic MENINGOCOCCAL VACCINES (B) Aged Out N o longer eligible based on patient's age to complete this topic Medical Devices Not on file Insurance MEDICARE PART A & B [facility] MEDICARE SUPPLEMENT MEDICARE PART A & B Member Subscriber Plan / Payer (Ef fective 2014-Present) Name:[employer]ilda sueall Member ID:[id number] Relation to Subscriber:Self Name:Yusuf Velásquez Subscriber ID:[id number] Payer ID:[id number] Group ID:Not on file Type:Medicare Address: [employer] [address] MEDICARE SUPPLEMENT MEDICARE PART A & B [facility] MEDICARE SUPPLEMENT MEDICARE PART A & B [facility] MEDICARE SUPPLEMENT MEDICARE PART A & B [facility] MEDICARE SUPPLEMENT MEDICARE PART A & B MEDICARE SUPPLEMENT MEDICARE PART A & B [facility] MEDICARE SUPPLEMENT MEDICARE PART A & B [facility] MEDICARE SUPPLEMENT MEDICARE PART A & B [facility] MEDICARE SUPPLEMENT Care Teams Surveyor'S Assistant Relationship Specialty Start Date End Date Saurav Jeffery NP [address] [id number] PCP - General Nurse Practitioner 03/08/23 Additional Source Comments The information contained in this document represents components of the legal health record. It is not the complete legal health record.[facility]
--- OUTSIDE RECORDS SUMMARY | 2025-08-29 19:49 | XMS_ITS | Encounter Summary ---
Author Organization [facility] Address [address] [facility] [address] [place] [address] Phone Care Team Providers Care Nanoelectronics Engineer Name Role Phone Randall Turner MD Primary Care Provider [phone] Crystal Boogie INSURANCE SPECIALIST Primary Care Provide r Saurav Jeffery NP Primary Care Provider [phone] Reason for Referral * MRI/CAT Scan - Closed Specialty Diagnoses / Procedures Referred By Contac t Referred To Contact Procedures MRI Brain Outside (No Interpretation) System, Provider Not In, [place] [address] Referral ID Status Reason Start Date Expiration Date Visits Re quested Visits Authorized [id number] Closed 06/17/2019 06/16/2020 1 1 * MRI/CAT Scan - Closed Specialty Diagnoses / Procedures Referred By Contac t Referred To Contact Procedures CT Head Outside (No Interpretation) System, Provider Not In, [place] [address] Referral ID Status Reason Start Date Expiration Date Visits Re quested Visits Authorized [id number] Closed 06/17/2019 06/16/2020 1 1 Encounter Details Date Type Department Care Team (Late st Contact Info) Description 06/17/2019 Ancillary Orders [facility],Outside Imaging [address] [place] [address] System, Provider Not In, [place] [address] Social History Tobacco Use Types Packs/Day Years Used Date Smoking Tobacco: Never Assessed Sex and Gender Information Value Date Recorded Sex Assigned at Not on file Legal Sex Male 11:09 AM EDT Gender Identity Not on file Sexual Orientation Not on file documented as of this encounter Plan of Treatment Upcoming Encounters Date Type Department Care Team (Late st Contact Info) Description 03/16/2026 10:00 AM EDT Office Visit [facility] [address] [place] [address] 3rd Floor, [address] [place] [address] Shalom Corrales MD [address] [facility], [address] [place] [address] [email or web address] documented as of this encounter Results * MRI Brain Outside (No Interpretation) (07/10/2017 12:00 AM EDT) Narrative SYSTEMGENERATED, DOCUMENTATION - 06/17/2019 3:38 PM EDT This study is for PACS storage only and not for interpretation. us Provider Not In System PhD IMG OUTSIDE IMAGING W /OUT INTERPRETATION Final Result * CT Head Outside (No Interpretation) (04/20/2017 12:00 AM EDT) Narrative SYSTEMGENERATED, DOCUMENTATION - 06/17/2019 3:37 PM EDT This study is for PACS storage only and not for interpretation. us Provider Not In System PhD IMG OUTSIDE IMAGING W /OUT INTERPRETATION Final Result documented in this encounter Visit Diagnoses Not on filedocumented in this encounter Care Teams Nanoelectronics Engineer Relationship Specialty Start Date End Date Randall Turner MD [address] [facility] [address] [place] [address] [email or web address] PCP - General Internal Medicine 04/16/19 Crystal Boogie NP [address] [facility] [address] [place] [address] [email or web address] PCP - General 03/02/22 03/07/23 Saurav Jeffery NP [address] [place] [phone] PCP - General Nurse Practitioner 03/08/23 documented as of this encounter Additional Source Comments The information contained in this document represents components of the legal health record. It is not the complete legal health record.[facility]
--- OUTSIDE RECORDS SUMMARY | 2025-08-29 19:49 | XMS_ITS | Encounter Summary ---
Author Organization [facility] Address [address] [facility] [address] [place] [address] Phone Care Team Providers Care Cane Stripper Name Role Phone Randall Turner MD Primary Care Provider [phone] Crystal Boogie FIG WASHER Primary Care Provide r Saurav Jeffery FIG WASHER Primary Care Provider [phone] Encounter Details Date Type Department Care Team (Late st Contact Info) Description 06/17/2019 Procedure [facility],Outside Imaging [address] [place] [address] Social History Tobacco Use Types Packs/Day Years [...] Description 03/16/2026 10:00 AM EDT Office Visit [facility] [address] [place] [address] 3rd Floor, [address] [place] [address] Shalom Corrales MD [address] [facility], [address] [place] [address] documented as of this encounter Visit Diagnoses Not on filedocumented in this encounter Care Teams Cane Stripper Relationship Specialty Start Date End Date Randall Turner MD [address] [facility] [address] [place] [address] [email or web address] PCP - General Internal Medicine 04/16/19 Crystal Boogie NP [address] [facility] [address] [place] [address] [email or web address] PCP - General 03/02/22 03/07/23 Saurav Jeffery NP [address] [facility] [address] [place] [address] PCP - General Nurse Practitioner 03/08/23 documented as of this encounter Additional Source Comments The information contained in this document represents components of the legal health record. It is not the complete legal health record.[facility]
== END 2025-08-29 15:22 | disposition home or self-care (01) ==
LOC: HO.RHES 14:33
PROVIDERS: PCP Nurse Practitioner Family; Visit Provider Student in an Organized Health Care Education/Training Program
DX: M06.00 Rheumatoid arthritis without rheumatoid factor, unspecified site (principal); D47.2 Monoclonal gammopathy; Z51.81 Encounter for therapeutic drug level monitoring; Z79.620 Long term (current) use of immunosuppressive biologic
CPT/HCPCS: 99214; G2211

== ENCOUNTER → 2025-08-29 14:33 | Outpatient (BNVA) | payer MEDICARE, SELFPAY | PROVIDERS: PCP Nurse Practitioner Family; Visit Provider Student in an Organized Health Care Education/Training Program | DX: D47.2 Monoclonal gammopathy (principal); Z79.620 Long term (current) use of immunosuppressive biologic; Z79.899 Other long term (current) drug therapy | CPT/HCPCS: 99212 ==